=== PATIENT | male | born 1960 | race Caucasian/White ===

== ENCOUNTER 2025-04-10 05:55 | Inpatient (IN) | payer MEDICARE, SELFPAY ==
[2025-04-10] VITALS (8 sets, daily range): BP systolic 101–154; BP diastolic 58–94; PULSE 71–106; TEMP 36.3–36.5; O2SAT 94–99; BMI 26.4; BMI 26.2
--- NOTE | 2025-04-10 06:30 | ED.MALEGU1 ---
Documented by User: Flaco Kam MD 04/10/25 19:19 HPI - Male Genitourinary General Chief complaint: Urogenital-Male Stated complaint: UTI Time Seen by Provider: 04/10/25 06:16 Source: patient Mode of arrival: walk-in Limitations: no limitations History of Present Illness HPI Narrative: patient complains of discomfort with urination and difficulty starting urinary flow for past 2 weeks. Started on Bactrim ds and has taken 3 doses so far but does not feel he is any better and now presents to be seen. No nausea or vomiting. no flank pain Related Data Home Medications ?Medication ?Instructions ?Recorded ?Confirmed lisinopril 5 mg tablet 5 mg PO DAILY 04/10/25 04/10/25 sulfamethoxazole 800 1 tab PO Q12H 04/10/25 04/10/25 mg-trimethoprim 160 mg tablet Allergies Allergy/AdvReac Type Severity Reaction Status Date / Time No Known Drug Allergies Allergy Verified 04/10/25 06:07 Review of Systems ROS Status of ROS 10 or more systems reviewed and unremarkable except as noted in history and below [facility] Medical History (Updated 04/10/25 @ 12:27 by Shaikh Elvira MD) HTN (hypertension) ?I10 - Essential (primary) hypertension (ICD-10) Borderline high blood pressure ?R03.0 - Elevated blood-pressure reading, without diagnosis of hypertension (ICD-10) Social History Smoking status: Never smoker Non-prescribed substance use: denies use Previous occupational history: retired Known occupational exposures/hazards: No Highest level of school completed/degree received: high school graduate Little interest or pleasure in doing things: several days Feeling down, depressed, or hopeless: not at all Exam Constitutional Vital Signs, click to edit/add: Last Vital Signs Temp 97.4 F L 04/10/25 15:49 Pulse 74 04/10/25 15:49 Resp 16 04/10/25 15:49 BP 112/66 04/10/25 15:49 Pulse Ox 96 04/10/25 15:49 O2 Del Method Room Air 04/10/25 14:30 Common normals: no apparent distress, average body habitus, oriented x3, no limitations, healthy appearing, alert and well nourished [facility] Common normals: normocephalic and head/scalp atraumatic Eye Common normals: EOMs intact bilaterally and conjunctivae normal Respiratory Common normals: normal respiratory effort, no retractions, no use of accessory muscles and clear to auscultation bilaterally Cardio Common normals: regular rate, regular rhythm, S1 normal heart sound and S2 normal heart sound GI Common normals: Normal to inspection, nondistended, normoactive bowel sounds present, soft to palpation and non-tender Extremity Common normals: normal to inspection and full ROM Neuro Common normals: oriented x3, CN's II-XII intact bilaterally and moves all extremities Psych Appearance: grossly normal Course Vital Signs Vital signs: Vital Signs Temperature 97.7 F 04/10/25 06:01 Pulse Rate 106 H 04/10/25 06:01 Respiratory Rate 18 04/10/25 06:01 Blood Pressure 154/94 H 04/10/25 06:01 Pulse Oximetry 96 04/10/25 06:01 Oxygen Delivery Method Room Air 04/10/25 06:01 Temperature 97.4 F L 04/10/25 15:49 Pulse Rate 74 04/10/25 15:49 Respiratory Rate 16 04/10/25 15:49 Blood Pressure 112/66 04/10/25 15:49 Pulse Oximetry 96 04/10/25 15:49 Oxygen Delivery Method Room Air 04/10/25 14:30 MDM - Male Genitourinary MDM Narrative Medical decision making narrative: patient presents with complaint of dysuria that has not improved after 3 doses of bactrim. States sometimes he is not able to urinate. Bladder scan with 1400cc of urine. Colvin placed by nursing and UA sent care transferred to oncoming physician at change of shift Lab Data Labs: Lab Results 04/10/25 04/10/25 Range/Units 06:17 07:23 WBC 7.5 (4.0-11.0) 10^3/uL RBC 4.58 L (4.70-6.10) 10^6/uL Hgb 13.0 L (14.0-18.0) g/dL Hct 37.2 L (42.0-54.0) % MCV 81.2 (80.0-94.0) fL MCH 28.4 (25.9-34.0) pg MCHC 34.9 (29.9-35.2) g/dL RDW 12.1 (11.0-15.0) % Plt Count 253 (150-450) 10^3/uL MPV 9.9 (9.5-13.5) fL Neut % (Auto) 70.4 (43.0-75.0) % Lymph % (Auto) 14.7 L (20.5-60.0) % [place] % (Auto) 13.8 H (1.7-12.0) % Eos % (Auto) 0.4 L (0.9-7.0) % Baso % (Auto) 0.4 (0.2-2.0) % Neut # (Auto) 5.3 (1.4-6.5) 10^3/uL Lymph # (Auto) 1.1 L (1.2-3.8) 10^3/uL [place] # (Auto) 1.0 H (0.3-0.8) 10^3/uL Eos # (Auto) 0.0 (0.0-0.7) 10^3/uL Baso # (Auto) 0.0 (0.0-0.1) 10^3/uL Abs Immat Gran (auto) 0.02 (0.00-0.03) 10^3/uL Imm/Tot Granulo (auto) 0.3 (0.0-0.5) % PT 13.5 H (9.0-11.6) sec INR 1.31 Sodium 133 L (136-145) mmol/L Potassium 4.2 (3.5-5.1) mmol/L Chloride 98 (98-107) mmol/L Carbon Dioxide 17.5 L (21.0-32.0) mmol/L Anion Gap 21.7 BUN 59.0 H (7.0-18.0) mg/dL Creatinine 3.67 H (0.70-1.30) mg/dL Est GFR ( Amer) 20 L (>=60 mL/min/1.73m^2) Est GFR (Non-Af Amer) 17 L (>=60 mL/min/1.73m^2) BUN/Creatinine Ratio 16.1 Glucose 109 H (74-106) mg/dL Lactate 1.3 (0.4-2.0) mmol/L Calcium 9.5 (8.5-10.1) mg/dL Total Bilirubin 0.6 (0.2-1.0) mg/dL AST 16 (15-37) U/L ALT 18 (16-63) U/L Alkaline Phosphatase 87 (46-116) U/L Total Protein 7.6 (6.4-8.2) g/dL Albumin 3.3 L (3.4-5.0) g/dL Globulin 4.3 g/dL Albumin/Globulin Ratio 0.8 Urine Color Lt. yellow (YELLOW) Urine Clarity Cloudy A (CLEAR) Urine pH 6.5 (5.0-9.0) Ur Specific [place] 1.015 (1.005-1.025) Urine Protein >=300 A (NEG/TRACE) mg/dL Urine Glucose (UA) Negative (NEGATIVE) mg/dL Urine Ketones Negative (NEGATIVE) mg/dL Urine Occult Blood Large A (NEGATIVE) Urine Nitrite Negative (NEGATIVE) Urine Bilirubin Negative (NEGATIVE) Urine Urobilinogen 0.2 (0.2-1.0) EU/dL Ur Leukocyte Esterase Large A (NEGATIVE) Urine RBC 50-75 A (0-2) #/HPF Urine WBC 75-100 A (NONE SEEN) #/HPF Ur Squamous Epith Cells Rare (NONE/RARE) #/LPF Urine Crystals None seen (None Seen) #/HPF Urine Bacteria Small A (NONE SEEN) #/HPF Urine Casts None seen (NONE SEEN) #/LPF Urine Mucus None seen (NONE SEEN) Ur [place] [place] Discharge Chief Complaint: Urogenital-Male Clinical Impression: Acute urinary retention, Acute renal failure, Acute UTI Patient Disposition: Admitted as Observation Time of Disposition Decision: 09:31 Discharge Date/Time: 04/10/25 11:35 Documented by User: Wendy Lindsey MD 04/10/25 10:21 HPI - Male Genitourinary General Chief complaint: Urogenital-Male Stated complaint: UTI Time Seen by Provider: 04/10/25 06:16 Related Data Home Medications ?Medication ?Instructions ?Recorded ?Confirmed lisinopril 5 mg tablet 5 mg PO DAILY 04/10/25 04/10/25 sulfamethoxazole 800 1 tab PO Q12H 04/10/25 04/10/25 mg-trimethoprim 160 mg tablet Allergies Allergy/AdvReac Type Severity Reaction Status Date / Time No Known Drug Allergies Allergy Verified 04/10/25 06:07 [facility] Medical History (Updated 04/10/25 @ 12:27 by Shaikh Elvira MD) HTN (hypertension) ?I10 - Essential (primary) hypertension (ICD-10) Borderline high blood pressure ?R03.0 - Elevated blood-pressure reading, without diagnosis of hypertension (ICD-10) Social History Smoking status: Never smoker Non-prescribed substance use: denies use Previous occupational history: retired Known occupational exposures/hazards: No Highest level of school completed/degree received: high school graduate Little interest or pleasure in doing things: several days Feeling down, depressed, or hopeless: not at all Exam Constitutional Vital Signs, click to edit/add: Last Vital Signs Temp 97.4 F L 04/10/25 15:49 Pulse 74 04/10/25 15:49 Resp 16 04/10/25 15:49 BP 112/66 04/10/25 15:49 Pulse Ox 96 04/10/25 15:49 O2 Del Method Room Air 04/10/25 14:30 Course Vital Signs Vital signs: Vital Signs Temperature 97.7 F 04/10/25 06:01 Pulse Rate 106 H 04/10/25 06:01 Respiratory Rate 18 04/10/25 06:01 Blood Pressure 154/94 H 04/10/25 06:01 Pulse Oximetry 96 04/10/25 06:01 Oxygen Delivery Method Room Air 04/10/25 06:01 Temperature 97.4 F L 04/10/25 15:49 Pulse Rate 74 04/10/25 15:49 Respiratory Rate 16 04/10/25 15:49 Blood Pressure 112/66 04/10/25 15:49 Pulse Oximetry 96 04/10/25 15:49 Oxygen Delivery Method Room Air 04/10/25 14:30 MDM - Male Genitourinary MDM Narrative Medical decision making narrative: patient presents with complaint of dysuria that has not improved after 3 doses of bactrim. States sometimes he is not able to urinate. Bladder scan with 1400cc of urine. Colvin placed by nursing and UA sent care transferred to oncoming physician at change of shift The patient care transferred to in at 7 AM: And the patient urinalysis shows UTI and the chemistry showing acute kidney injury with a creatinine 3.6 CBC shows no leukocytosis It seems that the patient mostly have acute kidney injury secondary to urinary retention and we did have a CAT scan without contrast that showed that the patient have significant hydronephrosis with a left-sided kidney atrophy the patient also have a thickened bladder The patient pain did not get better after he had the Colvin catheter placed he had the significant hematuria after draining almost 1400 cc of urine The patient case was discussed with from the urology service and right now the patient will be admitted for hydration and URBANO management he was started on imipenem for urine infection treatment Patient case discussed with and he agreed on above-mentioned plan Lab Data Labs: Lab Results 04/10/25 04/10/25 Range/Units 06:17 07:23 WBC 7.5 (4.0-11.0) 10^3/uL RBC 4.58 L (4.70-6.10) 10^6/uL Hgb 13.0 L (14.0-18.0) g/dL Hct 37.2 L (42.0-54.0) % MCV 81.2 (80.0-94.0) fL MCH 28.4 (25.9-34.0) pg MCHC 34.9 (29.9-35.2) g/dL RDW 12.1 (11.0-15.0) % Plt Count 253 (150-450) 10^3/uL MPV 9.9 (9.5-13.5) fL Neut % (Auto) 70.4 (43.0-75.0) % Lymph % (Auto) 14.7 L (20.5-60.0) % [place] % (Auto) 13.8 H (1.7-12.0) % Eos % (Auto) 0.4 L (0.9-7.0) % Baso % (Auto) 0.4 (0.2-2.0) % Neut # (Auto) 5.3 (1.4-6.5) 10^3/uL Lymph # (Auto) 1.1 L (1.2-3.8) 10^3/uL [place] # (Auto) 1.0 H (0.3-0.8) 10^3/uL Eos # (Auto) 0.0 (0.0-0.7) 10^3/uL Baso # (Auto) 0.0 (0.0-0.1) 10^3/uL Abs Immat Gran (auto) 0.02 (0.00-0.03) 10^3/uL Imm/Tot Granulo (auto) 0.3 (0.0-0.5) % PT 13.5 H (9.0-11.6) sec INR 1.31 Sodium 133 L (136-145) mmol/L Potassium 4.2 (3.5-5.1) mmol/L Chloride 98 (98-107) mmol/L Carbon Dioxide 17.5 L (21.0-32.0) mmol/L Anion Gap 21.7 BUN 59.0 H (7.0-18.0) mg/dL Creatinine 3.67 H (0.70-1.30) mg/dL Est GFR ( Amer) 20 L (>=60 mL/min/1.73m^2) Est GFR (Non-Af Amer) 17 L (>=60 mL/min/1.73m^2) BUN/Creatinine Ratio 16.1 Glucose 109 H (74-106) mg/dL Lactate 1.3 (0.4-2.0) mmol/L Calcium 9.5 (8.5-10.1) mg/dL Total Bilirubin 0.6 (0.2-1.0) mg/dL AST 16 (15-37) U/L ALT 18 (16-63) U/L Alkaline Phosphatase 87 (46-116) U/L Total Protein 7.6 (6.4-8.2) g/dL Albumin 3.3 L (3.4-5.0) g/dL Globulin 4.3 g/dL Albumin/Globulin Ratio 0.8 Urine Color Lt. yellow (YELLOW) Urine Clarity Cloudy A (CLEAR) Urine pH 6.5 (5.0-9.0) Ur Specific [place] 1.015 (1.005-1.025) Urine Protein >=300 A (NEG/TRACE) mg/dL Urine Glucose (UA) Negative (NEGATIVE) mg/dL Urine Ketones Negative (NEGATIVE) mg/dL Urine Occult Blood Large A (NEGATIVE) Urine Nitrite Negative (NEGATIVE) Urine Bilirubin Negative (NEGATIVE) Urine Urobilinogen 0.2 (0.2-1.0) EU/dL Ur Leukocyte Esterase Large A (NEGATIVE) Urine RBC 50-75 A (0-2) #/HPF Urine WBC 75-100 A (NONE SEEN) #/HPF Ur Squamous Epith Cells Rare (NONE/RARE) #/LPF Urine Crystals None seen (None Seen) #/HPF Urine Bacteria Small A (NONE SEEN) #/HPF Urine Casts None seen (NONE SEEN) #/LPF Urine Mucus None seen (NONE SEEN) Ur [place] [place] Discharge Chief Complaint: Urogenital-Male Clinical Impression: Acute urinary retention, Acute renal failure, Acute UTI Patient Disposition: Admitted as Observation Time of Disposition Decision: 09:31 Discharge Date/Time: 04/10/25 11:35
[2025-04-10 06:54] LABS: Bilirubin Urine NEGATIVE (NEGATIVE); Blood Urine LARGE (NEGATIVE); Clarity Urine CLOUDY (CLEAR); Color Urine LT. YELLOW (YELLOW); Glucose Urine UA NEGATIVE (NEGATIVE); Ketones Urine NEGATIVE (NEGATIVE); Leukocyte Esterase Urine LARGE (NEGATIVE); Nitrite Urine NEGATIVE (NEGATIVE); Protein Urine >=300 mg/dL (NEG/TRACE); Specific Gravity Urine 1.015 (1.005-1.025); Urobilinogen Urine 0.2 EU/dL (0.2-1.0); pH Urine 6.5 (5.0-9.0)
[2025-04-10] MEDS: LIDOCAINE 2% JELLY 20 ML UR (07:00)
[2025-04-10 07:10] LABS: RBC Urine 50-75 #/HPF (0-2)
[2025-04-10 07:11] LABS: Bacteria Urine SMALL #/HPF (NONE SEEN); WBC Urine 75-100 #/HPF (NONE SEEN)
[2025-04-10 07:12] LABS: Cast Seen? NONE SEEN #/LPF (NONE SEEN); Crystals Seen? None Seen #/HPF (None Seen); Mucus Urine NONE SEEN (NONE SEEN); Squamous Epithelial Cell Urine RARE #/LPF (NONE/RARE); Urine Culture Indicated YES-FRMC
[2025-04-10] MEDS: KETOROLAC TROMETHAMINE 30 MG/ML VIAL 15 MG IVP (07:17)
[2025-04-10 07:30] LABS: Basophils Percent Auto 0.4 % (0.2-2.0); Eosinophils Percent Auto 0.4 % (0.9-7.0); Hematocrit 37.2 % (42.0-54.0); Immature Granulocytes Abs Auto 0.02 10^3/uL (0.00-0.03); Immature Granulocytes Pct Auto 0.3 % (0.0-0.5); Lymphocytes Absolute Auto 1.1 10^3/uL (1.2-3.8); Lymphocytes Percent Auto 14.7 % (20.5-60.0); Mean Corpuscular HGB Conc 34.9 g/dL (29.9-35.2); Mean Corpuscular Hemoglobin 28.4 pg (25.9-34.0); Mean Corpuscular Volume 81.2 fL (80.0-94.0); Mean Platelet Volume 9.9 fL (9.5-13.5); Monocytes Percent Auto 13.8 % (1.7-12.0); Neutrophils Absolute Auto 5.3 10^3/uL (1.4-6.5); Neutrophils Percent Auto 70.4 % (43.0-75.0); Platelet Count 253 10^3/uL (150-450); Red Blood Count 4.58 10^6/uL (4.70-6.10); Red Cell Distribution Width 12.1 % (11.0-15.0); White Blood Count 7.5 10^3/uL (4.0-11.0)
[2025-04-10 07:44] LABS: INR 1.31; Prothrombin Time 13.5 sec (9.0-11.6)
[2025-04-10] MEDS: MORPHINE SULFATE 4 MG/ML VIAL IV (07:45)
[2025-04-10 07:47] LABS: Alanine Aminotransferase 18 U/L (16-63); Albumin Globulin Ratio 0.8; Albumin Level 3.3 g/dL (3.4-5.0); Alkaline Phosphatase 87 U/L (46-116); Anion Gap 21.7; Aspartate Amino Transferase 16 U/L (15-37); BUN Creatinine Ratio 16.1; Bilirubin Total 0.6 mg/dL (0.2-1.0); Calcium 9.5 mg/dL (8.5-10.1); Carbon Dioxide 17.5 mmol/L (21.0-32.0); Chloride 98 mmol/L (98-107); Estimated GFR (African America 20 (>=60 mL/min/1.73m^2); Estimated GFR (Non-African Ame 17 (>=60 mL/min/1.73m^2); Globulin 4.3 g/dL; Glucose 109 mg/dL (74-106); Potassium 4.2 mmol/L (3.5-5.1); Sodium 133 mmol/L (136-145); Total Protein 7.6 g/dL (6.4-8.2)
[2025-04-10] MEDS: 0.9 % SODIUM CHLORIDE 1,000 ML 1000 ML IV ×2 (08:17→09:47)
[2025-04-10] MEDS: IMIPENEM/CILASTATIN SODIUM 500 MG in 0.9 % SODIUM CHLORIDE 100 ML 200 MG IV (09:47)
[2025-04-10 09:55] LABS: Lactate/Lactic Acid 1.3 mmol/L (0.4-2.0)
--- NOTE | 2025-04-10 12:10 | US_ITS ---
The [address] [address] Patient Name: MICHAEL CAMPBELL MRN: [id number] date: 1960 Sex: M Assigned Patient Location: [place] Current Patient Location: [place] Accession/Order Number: [id number] Exam Date: 04/11/2025 13:29 Report Date: 04/11/2025 13:33 At the request of: SHAIKH KINA ARRIAGA Procedure: US renal BI BILATERAL RENAL AND BLADDER ULTRASOUND CLINICAL HISTORY: Follow-up hydronephrosis on CT COMPARISON: CT 04/10/2025 Estimation of renal size is approximately 11.4 cm on the right and 10.2 cm on the left. No shadowing calculi are identified. There is mild right hydronephrosis. There is moderate to severe hydronephrosis and proximal hydroureter on the left. There may be some thinning of the cortex on that side. A suspected cyst with debris is present at the inferior pole the right kidney measuring 3.3 x 3.3 x 3.1 cm. There is no perinephric fluid. The urinary bladder contains a Hsieh catheter and is not adequately distended for evaluation. The wall does however appear to be thickened. US/US renal BI IMPRESSION: MILDLY COMPLICATED RIGHT RENAL CYST. BILATERAL HYDRONEPHROSIS, GREATER ON THE LEFT. HSIEH CONTAINING URINARY BLADDER WITH SUSPECTED WALL THICKENING. Impression dictated by: Telma Estrada M.D. 04/11/2025 1:33 PM Dictation Location: [place] [address] Electronically authenticated by: [id number] Y Date: 04/11/2025 13:33
--- NOTE | 2025-04-10 12:23 | P.HP_ITS ---
HPI H&P: HPI History of Present Illness Chief complaint: UTI, URBANO, URINE RETENTION Narrative: History of presenting illness and Hospital course: 65-year-old male with past medical history of essential hypertension presented to ED with suprapubic discomfort/pain along with dysuria. He was started on Bactrim 3 days ago for suspected UTI and he has been using it for 3 days. Workup in ED revealed bilateral hydroureteronephrosis/bladder wall thickening on CT abdomen pelvis along with acute kidney injury with serum creatinine of 3.6. Patient denies prior history of acute kidney injury or chronic kidney disease. For past few months he has noticed nocturia, polyuria, weak urinary stream and sense of incomplete bladder emptying. He never had urinary catheterization in the past. He does not follow-up with urology as outpatient. In ER after Colvin insertion about 1400 mL urine came out. Subjectively, patient feels well after catheter insertion. After Colvin insertion, he was noted to have mild hematuria which could be secondary to bladder outlet obstruction/difficult urinary catheterization. Prior to catheterization, he did not notice hematuria. Opioid HPI Opioid Management Most Recent Pain and Opioid Data: Last Pain Scale 10 Today, 07:45 Last MAR Pain Assessment Today, 07:17 Last ORT Total Score 0 Today, 11:44 Last ORT Risk Category Low Risk Today, 11:44 Review of Systems ROS Status of ROS 10 or more systems reviewed and unremark able except as noted in history and below [facility] Medical History (Updated 04/10/25 @ 12:27 by Shaikh Elvira MD) HTN (hypertension) ?I10 - Essential (primary) hypertension (ICD-10) Borderline high blood pressure ?R03.0 - Elevated blood-pressure reading, without diagnosis of hypertension ( ICD-10) Social History Smoking status: Never smoker Non-prescribed substance use: denies use Previous occupational history: retired Known occupational exposures/hazards: No Highest level of school completed/degree received: high school graduate Little interest or pleasure in doing things: several days Feeling down, depressed, or hopeless: not at all Meds Home Medications and Allergies Home Medications ?Medication ?Instructions ?Recorded ?Confirmed ?Type lisinopril 5 mg tablet 5 mg PO DAILY 04/10/2504/10 History sulfamethoxazole 800 1 tab PO Q12H 04/10/2504/10 History mg-trimethoprim 160 mg tablet Allergies Allergy/AdvReac Type Severity Reaction Status Date / Time No Known Drug Allergies Allergy Verified 04/10/25 06:07 Exam Constitutional Vital Signs, click to edit/add: Last Vital Signs Temp 97.4 F L 04/10/25 11:44 Pulse 73 04/10/25 11:44 Resp 16 04/10/25 11:44 BP 103/60 04/10/25 11:44 Pulse Ox 96 04/10/25 11:44 O2 Del Method Room Air 04/10/25 11:44 Documenting provider has reviewed patient's vital signs: yes Common normals: no apparent distress and oriented x3 General appearance: cooperative HENMT Common normals: normocephalic and head/scalp atraumatic Head and scalp: normocephalic and atraumatic Eye Common normals: conjunctivae normal and no scleral icterus Conjunctiva: conjunctiva(e) normal Respiratory Common normals: normal respiratory effort and clear to auscultation bilaterally Effort & inspection: able to speak in complete sentences Auscultation: clear to auscultation bilaterally Cardio Common normals: regular rate, S1 normal heart sound and S2 normal heart sound Rate: regular rate Heart sounds: S1 normal and S2 normal GI Common normals: Normal to inspection, nondistended, normoactive bowel sounds present, soft to palpation, non-tender and no hepatosplenomegaly Palpation: soft and no hepatosplenomegaly Extremity Common normals: no clubbing, cyanosis or edema Neuro Common normals: oriented x3, moves all extremities and no focal motor deficits Psych Common normals: mental status grossly normal, denies hallucinations, denies homicidal ideation and denies suicidal ideation Results Labs Labs: Short CBC 04/10/25 Range/Units 07:23 WBC 7.5 (4.0-11.0) 10^3/uL Hgb 13.0 L (14.0-18.0) g/dL Hct 37.2 L (42.0-54.0) % Plt Count 253 (150-450) 10^3/uL BMP 04/10/25 07:23 Sodium 133 L Potassium 4.2 Chloride 98 Carbon Dioxide 17.5 L BUN 59.0 H Creatinine 3.67 H Glucose 109 H Calcium 9.5 Liver Function 04/10/25 Range/Units 07:23 Total Bilirubin 0.6 (0.2-1.0) mg/dL AST 16 (15-37) U/L ALT 18 (16-63) U/L Alkaline Phosphatase 87 (46-116) U/L Albumin 3.3 L (3.4-5.0) g/dL Urine 04/10/25 Range/Units 06:17 Urine Color Lt. yellow (YELLOW) Urine Clarity Cloudy A (CLEAR) Urine pH 6.5 (5.0-9.0) Ur Specific [place] 1.015 (1.005-1.025) Urine Protein >=300 A (NEG/TRACE) mg/dL Urine Glucose (UA) Negative (NEGATIVE) mg/dL Assessment and Plan Assessment and Plan (1) URBANO (acute kidney injury): Assessment and Plan: Normal kidney function at baseline. Patient presented with creatinine of 3.6. Likely secondary to bladder outlet obstruction/obstructive uropathy. Has urin seth catheter in place now. Continue with gentle IV hydration. Monitor renal function closely. (2) Acute UTI: Assessment and Plan: Urinary tract infection secondary to BPH/bladder outlet obstruction, associated with hematuria. Started Rocephin. Follow-up urine culture (3) Urinary retention due to benign prostatic hyperplasia: Assessment and Plan: With urinary retention likely secondary to BPH. Catheter in place. No evidence of kidney stones. CT abdomen pelvis shows bilateral hydro ureteral nephrosis/urinary bladder wall thickening. (4) Hydronephrosis due to obstruction of bladder: Assessment and Plan: Bilateral hydroureteronephrosis likely secondary to bladder outlet obstruction from BPH. Colvin catheter in place. Will repeat renal ultrasound to ensure improvement in hydronephrosis. (5) HTN (hypertension): Assessment and Plan: Hold lisinopril because of acute kidney injury. If needed, will start on amlo dipine. Monitor blood pressure without antihypertensives for now. Qualifiers: Hypertension type: primary hypertension Qualified Code(s): I10 - Essential (primary) hypertension Plan Continue with gentle IV hydration. Monitor serum creatinine, urine output closely. Continue with IV antibiotics. Repeat ultrasound on Friday. Started on Flomax for bladder outlet obstruction secondary to BPH. Follow-up urine cultures. Urinary Catheter Management Urinary Catheter Management 2-way Urethral: Cath placed during this visit: yes Urethral indwelling: Yes Reason for continuing: urinary obstruction Insertion date: 04/10/25 Insertion time: 06:50
[2025-04-10] MEDS: HEPARIN SODIUM (PORCINE) 5,000 UNIT/ML VIAL 5000 UNIT SUBQ ×2 (13:25→21:16)
[2025-04-10] MEDS: TAMSULOSIN HCL 0.4 MG CAPSULE PO (13:25)
[2025-04-10] MEDS: LACTATED RINGER'S SOLUTION 1,000 ML 125 ML IV ×2 (15:53→23:06)
[2025-04-10] MEDS: CEFTRIAXONE 1,000 MG in 0.9 % SODIUM CHLORIDE 50 ML 100 MG IV (17:02)
[2025-04-10 20:19] LABS: Anion Gap 12.6; BUN Creatinine Ratio 17.1; Carbon Dioxide 20.2 mmol/L (21.0-32.0); Chloride 107 mmol/L (98-107); Estimated GFR (African America 28 (>=60 mL/min/1.73m^2); Estimated GFR (Non-African Ame 23 (>=60 mL/min/1.73m^2); Glucose 114 mg/dL (74-106); Potassium 3.8 mmol/L (3.5-5.1); Sodium 136 mmol/L (136-145)
[2025-04-11] VITALS (7 sets, daily range): BP systolic 100–122; BP diastolic 62–75; PULSE 65–114; TEMP 36.4–36.9; O2SAT 92–99
--- NOTE | 2025-04-11 05:07 | PC.NURSE ---
Subcutaneous heparin held at this time d/t patient having a lot of blood in urne.
[2025-04-11 05:37] LABS: Basophils Percent Auto 0.8 % (0.2-2.0); Eosinophils Absolute Auto 0.2 10^3/uL (0.0-0.7); Eosinophils Percent Auto 4.6 % (0.9-7.0); Hematocrit 31.5 % (42.0-54.0); Hemoglobin 10.8 g/dL (14.0-18.0); Immature Granulocytes Abs Auto 0.01 10^3/uL (0.00-0.03); Immature Granulocytes Pct Auto 0.3 % (0.0-0.5); Mean Corpuscular HGB Conc 34.3 g/dL (29.9-35.2); Mean Corpuscular Hemoglobin 28.6 pg (25.9-34.0); Mean Corpuscular Volume 83.3 fL (80.0-94.0); Mean Platelet Volume 9.9 fL (9.5-13.5); Monocytes Absolute Auto 0.4 10^3/uL (0.3-0.8); Neutrophils Absolute Auto 2.3 10^3/uL (1.4-6.5); Neutrophils Percent Auto 57.3 % (43.0-75.0); Platelet Count 149 10^3/uL (150-450); Red Blood Count 3.78 10^6/uL (4.70-6.10); Red Cell Distribution Width 12.2 % (11.0-15.0); White Blood Count 3.9 10^3/uL (4.0-11.0)
[2025-04-11 05:56] LABS: Anion Gap 16.3; Chloride 109 mmol/L (98-107); Glucose 95 mg/dL (74-106); Potassium 4.3 mmol/L (3.5-5.1); Sodium 140 mmol/L (136-145)
[2025-04-11 05:57] LABS: Alanine Aminotransferase 17 U/L (16-63); Albumin Globulin Ratio 0.7; Albumin Level 2.4 g/dL (3.4-5.0); Alkaline Phosphatase 64 U/L (46-116); Aspartate Amino Transferase 15 U/L (15-37); BUN Creatinine Ratio 18.8; Bilirubin Total 0.3 mg/dL (0.2-1.0); Calcium 8.2 mg/dL (8.5-10.1); Estimated GFR (African America 37 (>=60 mL/min/1.73m^2); Estimated GFR (Non-African Ame 31 (>=60 mL/min/1.73m^2); Globulin 3.4 g/dL; Total Protein 5.8 g/dL (6.4-8.2)
--- NOTE | 2025-04-11 06:02 | P.PN_ITS ---
Progress Note: Subjective Subjective Interval history: No specific complaints this morning, abdominal pain that he presented to ER with is better Exam Constitutional Vital Signs, click to edit/add: Last Vital Signs Temp 98.4 F 04/11/25 05:48 Pulse 65 04/11/25 05:48 Resp 18 04/11/25 05:48 BP 112/67 04/11/25 05:48 Pulse Ox 96 04/11/25 05:48 O2 Del Method Room Air 04/11/25 05:48 Documenting provider has reviewed patient's vital signs: yes Common normals: no apparent distress Chest Common normals: inspection of chest normal Respiratory Common normals: normal respiratory effort and no retractions Cardio Common normals: regular rate, regular rhythm and no murmurs GI Common normals: Normal to inspection, nondistended, normoactive bowel sounds present, soft to palpation and non-tender Extremity Common normals: normal to inspection, full ROM and normal capillary refill Neuro Common normals: oriented x3 and CN's II-XII intact bilaterally Progress Note: Objective Labs Labs: Short CBC 04/10/25 04/11/25 Range/Units 07:23 05:11 WBC 7.5 3.9 L (4.0-11.0) 10^3/uL Hgb 13.0 L 10.8 L (14.0-18.0) g/dL Hct 37.2 L 31.5 L (42.0-54.0) % Plt Count 253 149 L (150-450) 10^3/uL BMP 04/10/25 04/10/25 04/11/25 07:23 20:03 05:11 Sodium 133 L 136 140 Potassium 4.2 3.8 4.3 Chloride 98 107 109 H Carbon Dioxide 17.5 L 20.2 L 19.0 L BUN 59.0 H 48.0 H 41.0 H Creatinine 3.67 H 2.81 H 2.18 H Glucose 109 H 114 H 95 Calcium 9.5 8.0 L 8.2 L Liver Function 04/10/25 04/11/25 Range/Units 07:23 05:11 Total Bilirubin 0.6 0.3 (0.2-1.0) mg/dL AST 16 15 (15-37) U/L ALT 18 17 (16-63) U/L Alkaline Phosphatase 87 64 (46-116) U/L Albumin 3.3 L 2.4 L (3.4-5.0) g/dL Urine 18/ Range/Units 06:17 Urine Color Lt. yellow (YELLOW) Urine Clarity Cloudy A (CLEAR) Urine pH 6.5 (5.0-9.0) Ur Specific [place] 1.015 (1.005-1.025) Urine Protein >=300 A (NEG/TRACE) mg/dL Urine Glucose (UA) Negative (NEGATIVE) mg/dL Progress Note: A&P Assessment and Plan (1) URBANO (acute kidney injury): (2) Acute UTI: (3) Urinary retention due to benign prostatic hyperplasia: (4) Hydronephrosis due to obstruction of bladder: (5) HTN (hypertension): Qualifiers: Hypertension type: primary hypertension Qualified Code(s): I10 - Essential (primary) hypertension Plan Admission findings: Sinus tachycardia, acute renal failure (baseline creatinine of 1, no history of kidney injury in the past, creatinine on admission of 3.67 which reported 367% above baseline secondary to bladder outlet obstruction resulting in significant hydronephrosis Acute renal failure-as outlined above-continue with IV hydration, creatinine still greater than 200% above baseline Acute UTI: On antibiotics, also with significant hematuria, culture pending, stop heparin Urinary retention due to benign prostatic hyperplasia: Repeat ultrasound kidneys pending Hydronephrosis due to obstruction of bladder: Repeat ultrasound pending HTN (hypertension): Holding lisinopril for now secondary to the creatinine Iron deficiency anemia-down somewhat today, continue to monitor Thrombocytopenia today-possibly buhjxcm-thdeown-guocisng heparin Hyponatremia on admission improved to normal normal Coagulopathy-somewhat better today, but elevated on admission uncertain etiology Neutropenia-borderline today-continue to monitor Admission status: Patient with acute renal failure and slow to improve secondary to bladder outlet obstruction resulting in hydronephrosis and now with sig nificant hematuria secondary to the bladder distention, medically necessary treatment will span 2 midnights. Inpatient status Urinary Catheter Management Urinary Catheter Management 2-way Urethral: Cath placed during this visit: yes Urethral indwelling: Yes Reason for continuing: acute urinary retention Insertion date: 04/10/25 Insertion time: 06:50
[2025-04-11] MEDS: LEVOFLOXACIN IN DEXTROSE 5 % 750 MG/150 ML PREMIX 100 MG IV (06:20)
[2025-04-11] MEDS: LACTATED RINGER'S SOLUTION 1,000 ML 125 ML IV ×2 (06:20→16:15)
[2025-04-11 06:52] LABS: INR 1.29; Prothrombin Time 13.3 sec (9.0-11.6)
--- NOTE | 2025-04-11 08:19 | CM.NOTE ---
Rounds made with Dr. Venegas. Dr. Venegas reviews labs and findings with Mr. Hernandez. Encouraged Mr. Hernandez to ambulate. No discharge today.
[2025-04-11] MEDS: POLYETHYLENE GLYCOL 3350 17 GM POWDER PACKET PO (09:22)
[2025-04-11] MEDS: TAMSULOSIN HCL 0.4 MG CAPSULE PO (09:23)
[2025-04-11] MEDS: ACETAMINOPHEN 500 MG TABLET 1000 MG PO (09:23)
[2025-04-11] MEDS: HYOSCYAMINE SULFATE 0.125 MG TAB.SUBL SL (09:23)
[2025-04-11] MEDS: CEFTRIAXONE 1,000 MG in 0.9 % SODIUM CHLORIDE 50 ML 100 MG IV (09:41)
[2025-04-11] MEDS: PNEUMOC 20-VAL CONJ-DIP CRM/PF 0.5 ML SYRINGE IM (09:42)
--- NOTE | 2025-04-11 09:49 | SWNOTE1 ---
HARI met with pt and in room to discuss dc needs. Pt lives at home with . Pt does not use any DME at home, still drives, goes up and down stairs. Pt is independent with no services coming in to the home. No anticipated discharge needs at this time.
--- NOTE | 2025-04-11 09:53 | SWNOTE1 ---
Important Message from Medicare reviewed and discussed with patient. Pt. verbalized understanding and signed the form. Original given to patient and copy placed in patient?s chart.
[2025-04-12] MEDS: LACTATED RINGER'S SOLUTION 1,000 ML 125 ML IV (00:10)
[2025-04-12 05:08] VITALS: BP 125/78; PULSE 74; TEMP 36.6; O2SAT 97
[2025-04-12 05:34] LABS: Basophils Percent Auto 0.7 % (0.2-2.0); Eosinophils Absolute Auto 0.2 10^3/uL (0.0-0.7); Eosinophils Percent Auto 4.7 % (0.9-7.0); Hematocrit 28.8 % (42.0-54.0); Hemoglobin 9.8 g/dL (14.0-18.0); Immature Granulocytes Abs Auto 0.01 10^3/uL (0.00-0.03); Immature Granulocytes Pct Auto 0.2 % (0.0-0.5); Lymphocytes Percent Auto 22.2 % (20.5-60.0); Mean Corpuscular Hemoglobin 28.4 pg (25.9-34.0); Mean Corpuscular Volume 83.5 fL (80.0-94.0); Mean Platelet Volume 9.8 fL (9.5-13.5); Monocytes Absolute Auto 0.3 10^3/uL (0.3-0.8); Monocytes Percent Auto 7.7 % (1.7-12.0); Neutrophils Absolute Auto 2.8 10^3/uL (1.4-6.5); Neutrophils Percent Auto 64.5 % (43.0-75.0); Platelet Count 146 10^3/uL (150-450); Red Blood Count 3.45 10^6/uL (4.70-6.10); Red Cell Distribution Width 12.1 % (11.0-15.0); White Blood Count 4.3 10^3/uL (4.0-11.0)
[2025-04-12 05:57] LABS: Alanine Aminotransferase 15 U/L (16-63); Albumin Globulin Ratio 0.7; Albumin Level 2.3 g/dL (3.4-5.0); Alkaline Phosphatase 58 U/L (46-116); Anion Gap 13.7; Aspartate Amino Transferase 16 U/L (15-37); BUN Creatinine Ratio 18.4; Bilirubin Total 0.3 mg/dL (0.2-1.0); Calcium 8.6 mg/dL (8.5-10.1); Carbon Dioxide 22.6 mmol/L (21.0-32.0); Chloride 111 mmol/L (98-107); Estimated GFR (African America 56 (>=60 mL/min/1.73m^2); Estimated GFR (Non-African Ame 46 (>=60 mL/min/1.73m^2); Globulin 3.4 g/dL; Glucose 100 mg/dL (74-106); Potassium 4.3 mmol/L (3.5-5.1); Sodium 143 mmol/L (136-145); Total Protein 5.7 g/dL (6.4-8.2)
--- NOTE | 2025-04-12 06:42 | P.DS_ITS ---
DS: Providers Provider Date of admission: 04/10/25 11:35 Primary care physician: CHETNA HANNAH DS: Diagnosis Discharge Diagnosis (1) URBANO (acute kidney injury): (2) Acute UTI: (3) Urinary retention due to benign prostatic hyperplasia: (4) Hydronephrosis due to obstruction of bladder: (5) HTN (hypertension): Qualifiers: Hypertension type: primary hypertension Qualified Code(s): I10 - Essential (primary) hypertension Plan Admission findings: Sinus tachycardia, acute renal failure (baseline creatinine of 1, no history of kidney injury in the past, creatinine on admission of 3.67 which reported 367% above baseline secondary to bladder outlet obstruction resulting in significant hydronephrosis Acute renal failure-improving at the time of discharge Acute UTI: Culture pending Urinary retention due to benign prostatic hyperplasia: Discharging with Colvin in place Hydronephrosis due to obstruction of bladder: Ultrasound shows improvement HTN (hypertension): Hold off for now Iron deficiency anemia-monitor as an outpatient Thrombocytopenia today-Down slightly at discharge Hyponatremia on admission improved to normal normal Coagulopathy-somewhat better today, but elevated on admission uncertain etiology Neutropenia-borderline today-continue to monitor Admission status: Patient with acute renal failure and slow to improve secondary to bladder outlet obstruction resulting in hydronephrosis and now with significant hematuria secondary to the bladder distention, medically necessary treatment will span 2 midnights. Inpatient status DS: Summary Hospital Course Hospital Course: Patient presented with lower abdominal pain, difficulty urinating, found of significant bladder outlet obstruction with moderate to severe hydronephrosis on CT scan ultrasound shows improvement in the right hydronephrosis left is stable, hematuria initially as well. This is likely from the bladder being overstressed, hematuria is resolved his kidney function is still elevated at 150% above baseline but overall improved, at this point we will discharge patient to home in improving condition. Medications see list. Follow-up with PCP and urology as an outpatient Time Spent with Patient Time attestation: Total time spent providing and/or coordinating discharge services: Exam Constitutional Vital Signs, click to edit/add: Last Vital Signs Temp 97.8 F 04/12/25 05:08 Pulse 74 04/12/25 05:08 Resp 20 04/12/25 05:08 BP 125/78 04/12/25 05:08 Pulse Ox 97 04/12/25 05:08 O2 Del Method Room Air 04/12/25 05:08 Documenting provider has reviewed patient's vital signs: yes Common normals: no apparent distress Chest Common normals: inspection of chest normal Respiratory Common normals: normal respiratory effort, no retractions and clear to auscultation bilaterally Cardio Common normals: regular rate, regular rhythm, S1 normal heart sound, S2 normal heart sound and no murmurs GI Common normals: Normal to inspection, nondistended, normoactive bowel sounds present, soft to palpation and non-tender Extremity Common normals: normal to inspection, full ROM and normal capillary refill Neuro Common normals: oriented x3 and CN's II-XII intact bilaterally DS: Data Data Completed and Pending Labs on day of discharge: Labs from last 24 hours 04/12/25 04/11/25 05:01 06:31 WBC 4.3 RBC 3.45 L Hgb 9.8 L Hct 28.8 L MCV 83.5 MCH 28.4 MCHC 34.0 RDW 12.1 Plt Count 146 L MPV 9.8 Neut % (Auto) 64.5 Lymph % (Auto) 22.2 [place] % (Auto) 7.7 Eos % (Auto) 4.7 Baso % (Auto) 0.7 Neut # (Auto) 2.8 Lymph # (Auto) 1.0 L [place] # (Auto) 0.3 Eos # (Auto) 0.2 Baso # (Auto) 0.0 Abs Immat Gran (auto) 0.01 Imm/Tot Granulo (auto) 0.2 PT 13.3 H INR 1.29 Sodium 143 Potassium 4.3 Chloride 111 H Carbon Dioxide 22.6 Anion Gap 13.7 BUN 28.0 H Creatinine 1.52 H Est GFR ( Amer) 56 L Est GFR (Non-Af Amer) 46 L BUN/Creatinine Ratio 18.4 Glucose 100 Calcium 8.6 Total Bilirubin 0.3 AST 16 ALT 15 L Alkaline Phosphatase 58 Total Protein 5.7 L Albumin 2.3 L Globulin 3.4 Albumin/Globulin Ratio 0.7 Preliminary micro results at discharge 04/10/25 06:17 Urine Culture - Preliminary Urine,Clean Catch Pending - Specimen sent to [facility] Discharge Plan Discharge Disposition: Home, Self-Care Discharge Medications: New tamsulosin 0.4 mg Capsule 0.4 mg PO QD Qty: 30 11RF cefdinir 300 mg capsule 600 mg PO DAILY Qty: 20 0RF Continued lisinopril 5 mg tablet 5 mg PO DAILY sulfamethoxazole-trimethoprim 800-160 mg tablet 1 tab PO Q12H Rx Instructions: Started 1st dose Friday Print Language: Irish Forms: Portal Instructions
--- NOTE | 2025-04-12 08:11 | CM.NOTE ---
Rounds made with Dr. Venegas. Dr. Venegas discusses plan of care and discharge to home. Discharge to home with miller and follow up with Urology and Family physician in ~1 week. Mr. Hernandez in agreement.
[2025-04-12] MEDS: TAMSULOSIN HCL 0.4 MG CAPSULE PO (09:47)
[2025-04-12] MEDS: POLYETHYLENE GLYCOL 3350 17 GM POWDER PACKET PO (09:47)
[2025-04-12] MEDS: CEFTRIAXONE 1,000 MG in 0.9 % SODIUM CHLORIDE 50 ML 100 MG IV (09:48)
[2025-04-12 10:50] VITALS: O2SAT 97
--- NOTE | 2025-04-12 12:53 | NUTR.NU ---
Pt was admitted to [facility] 04/10/25 w/dx UTI, URBANO, AKF, hydronephrosis; all resolved/resolving. PO intakes of regular diet are consistently 100%. Pt voices no dietary c/o or concerns. Will follow PRN.
--- NOTE | 2025-04-13 11:14 | CM.DCFOLLOWU ---
Person spoke with:patient How are you feeling?well How is your pain?none Did you understand your discharge instructions?yes Do you have any questions about your discharge instructions?no Were you given any prescriptions at discharge?yes Were you able to get your prescriptions filled?yes Do you understand how to take your medications as ordered?yes Do you have any questions about your follow up appointment and do you plan to keep your follow up appointment?no questions, plans to keep follow ups Is there anything else that you would like to discuss?no Questions/Comments/Concerns/Other:none
== END 2025-04-12 11:44 | disposition home or self-care (01) | DRG 683 ==
LOC: ER 09:32 → MS 04-11 05:36
PROVIDERS: Emergency Medicine; Admitting Provider Family Medicine; Emergency Provider Internal Medicine; PCP Internal Medicine; Visit Provider Internal Medicine
DX: N17.9 Acute kidney failure, unspecified (principal); D68.9 Coagulation defect, unspecified; N13.8 Other obstructive and reflux uropathy; N39.0 Urinary tract infection, site not specified; E87.1 Hypo-osmolality and hyponatremia; I10 Essential (primary) hypertension; N13.39 Other hydronephrosis; N40.1 Benign prostatic hyperplasia with lower urinary tract symptoms; R39.12 Poor urinary stream; R33.9 Retention of urine, unspecified; R35.0 Frequency of micturition; R35.1 Nocturia; D50.9 Iron deficiency anemia, unspecified; D69.6 Thrombocytopenia, unspecified; Z79.899 Other long term (current) drug therapy
CPT/HCPCS: 36415; 51702; 74176; 76775; 80048; 80053; 81001; 83605; 85025; 85610; 87040; 87086; 90677; 94761; 96365; 96375; 99285; J0696; J0743; J1644; J1885; J2270

== ENCOUNTER 2025-04-23 07:43 | Outpatient (OUT) | payer MEDICARE, SELFPAY ==
--- NOTE | 2025-04-23 07:46 | US_ITS ---
The [address] [address] Patient Name: MICHAEL CAMPBELL MRN: [id number] date: 1960 Sex: M Assigned Patient Location: US Current Patient Location: US Accession/Order Number: [id number] Exam Date: 04/23/2025 11:29 Report Date: 04/23/2025 11:36 At the request of: YFN BRENNER Procedure: US renal BI Bilateral Renal Ultrasound HISTORY: Hydronephrosis COMPARISON: 04/11/2025 RIGHT kidney measures 11.2 cm. No cortical thinning. LEFT kidney measures 9.0 cm. Cortical thinning. Hydronephrosis: Similar Slight right hydronephrosis. Improved moderate left hydronephrosis. RENAL STONE: No shadowing renal calculus is seen. RENAL LESIONS: Similar mildly complex right renal cyst measuring up to 2.4 cm. Prior measurement 3.3 cm. URINARY BLADDER: Nondistended with Colvin catheter present. REPRODUCTIVE STRUCTURES Not assessed IMPRESSION : Similar slight right and improved moderate left hydronephrosis. Redemonstration of mildly complicated right renal cyst, smaller from prior examination. Impression dictated by: Leo Nash M.D. 04/23/2025 11:36 AM Dictation Location: [place] [address] Electronically authenticated by: [id number] Y Date: 04/23/2025 11:36
== END 2025-04-23 07:44 | disposition home or self-care (01) ==
LOC: US 07:43
PROVIDERS: PCP Internal Medicine; Visit Provider Student in an Organized Health Care Education/Training Program
DX: N13.30 Unspecified hydronephrosis (principal); N28.1 Cyst of kidney, acquired
CPT/HCPCS: 76775

== ENCOUNTER 2025-05-07 10:48 | Observation (INO) | payer MEDICARE, SELFPAY ==
--- OUTSIDE RECORDS SUMMARY | 2025-05-04 08:00 | XMS_ITS | Encounter Summary ---
Author Organization [facility] Address [address] [place] [address] Care Team Providers Care Certified Ethical Hacker Name Role Phone Virginia Vieira APRN, CNP Primary Care Provider Reason for Referral * Imaging (Routine) - Not Required - RTA Specialty Diagnoses / Procedures Referred By Jes verdugo Referred To Contact Radiology Diagnoses Hydronephrosis, unspecified hydronephrosis type Procedures US RENAL LIMITED Yimi Ling MD [address] [facility], [address] [place] [address] Phone: tel: fax: Referral ID Status Reason Start Date Expiration Date V isits Requested Visits Authorized [id number] Not Required - RTA 05/04/2025 05/04/2026 1 1 Reason for Visit * Reason Comments New Patient New patient being se en here for hospital follow up URBANO, cystitis, hematuria. He does have a catheter in place. The patient continues to take the Flomax daily. He denies any catheter complications and has had good flow. No further issues with hematuria. * Eval and Treat (Routine) - Pending Review Specialty Diagnoses / Procedures Referred By Jes verdugo Referred To Contact Urology Diagnoses URBANO (acute kidney injury) Acute cystitis with hematuria Hydronephrosis, unspecified hydronephrosis type Virginia Vieira APRN - CNP [address] [place] [address] Phone: tel: fax: [facility] Part of [address] [place] [address] Phone: tel: fax: Referral ID Status Reason Start Date Expiration Date Visits Requested Visits Authorized [id number] Pending Review Specialty Services Required 04/20/2025 04/20/2026 1 1 Encounter Details Date Type Department Care Team (Late st Contact Info) Description 05/04/2025 8:00 AM EDT Office Visit [facility] Part of [address] [place] [address] Yimi Ling MD [address] [place] [address], [address] [place] [address] Hydronephrosis, unspecified hydronephrosis type (Primary Dx); Gross hematuria; BPH with obstruction/lower urinary tract symptoms; Bladder wall thickening Social History Tobacco Use Types Packs/Day Years Used Date Smoking Tobacco: Never Smokeless Tobacco: Never Tobacco Cessation:Counseling Given: Not Answered Alcohol Use Standard Drinks/Week Comments Yes 0 (1 standard drink = 0.6 oz pur e alcohol) 2-3 cans of beer per day [facility] Utilities Answer Date Recorded In the past 12 months has th e electric, gas, oil, or water company threatened to shut off services in your home? No 01/13/2025 Overall Financial Resource Strain (CARDIA) Answe r Date Recorded How hard is it for you to pa y for the very basics like food, housing, medical care, and heating? Not hard at all 08/31/2024 PHQ-2 Answer Date Recorded PHQ-9 Total Score 0 01/13/2025 Hunger Vital Sign Answer Date Recorded Within the past 12 months, y ou worried that your food would run out before you got the money to buy more. Never true 01/13/20 25 Within the past 12 months, t he food you bought just didn't last and you didn't have money to get more. Never true 01/13/2025 PRAPARE - Transportation Answer Date Re corded In the past 12 months, has l ack of transportation kept you from medical appointments or from getting medications? No 12/26 In the past 12 months, has l ack of transportation kept you from meetings, work, or from getting things needed for daily living? No 01/13/2025 Housing Stability Vital Sign Answer Luke e Recorded In the last 12 months, was t here a time when you were not able to pay the mortgage or rent on time? No 01/13/2025 In the past 12 months, how m any times have you moved where you were living? 0 01/13/2025 At any time in the past 12 m [facility], were you homeless or living in a assisted (including now)? No 01/13/2025 Food Insecurity Answer Date Recorded Within the past 12 months, y ou worried that your food would run out before you got the money to buy more. 1 01/13/2025 Within the past 12 months, t he food you bought just didn't last and you didn't have money to get more. 1 01/13/2025 Sex and Gender Information Value Date Recorded Sex Assigned at Male 03/22/2025 3:24 PM EDT Legal Sex Male 10:06 AM EDT Gender Identity Not on file Sexual Orientation Not on file documented as of this encounter Last Filed Vital Signs Vital Sign Reading Time Taken Comments Blood Pressure 127/73 05/04/2025 7:49 AM EDT Pulse 60 05/04/2025 7:49 AM EDT Temperature 36.1 C (96.9 F) 05/04/2025 7:49 AM EDT Respiratory Rate - - Oxygen Saturation - - Inhaled Oxygen Concentration - - Weight 83.5 kg (184 lb) 05/04/2025 7:49 AM EDT Height - - Body Mass Index 24.95 04/20/2025 1:01 PM EDT documented in this encounter Patient Instructions * Patient Instructions* Jerrica Urena LPN - 05/04/2025 7:46 AM EDT SURVEY: You may be receiving a survey from [employer] regarding your visit today. Please complete the survey to enable us to provide the highest quality of care to you and your family. If you cannot score us a very good on any question, please call the office to discuss how we could have made your experience a very good one. Thank you. documented in this encounter Progress Notes * Alda Zimmerman RN - 05/04/2025 8:20 AM EDT Pt had miller catheter placed on 04/10/2025 for UTI and urinary retention. Balloon deflated on catheter and catheter removed. Patient tolerated procedure well. Pt instructed to drink plenty of fluids, try to urinate q 2 hrs, call office in 6 hrs with update of amount voided, and if not voiding will need to return to office to have miller replaced. Also instructed to return to office or ER if goes >6 hrs without voiding or has strong urge to void/suprapubic discomfort and cannot urinate. Pt verbalizes understanding of plan. * Yimi Ling MD - 05/04/2025 8:04 AM EDT HPI: Patient is a 65 y.o. male in no acute distress. He is alert and oriented to person, place, and time. 8 patient being seen here today. Patient will be referred here by the emergency department. Patientis currently a Miller catheter in place. Patient does take daily Flomax. Patient did have a Miller catheter placed in the emergency department visit. He has had gross hematuria since then. Patient negative CT scan performed in the emergency department. This did not show any significant calcifications. This did show bilateral hydroureteronephrosis. With also thickened bladder wall. The patient has been on Flomax for approximately 2 weeks. Patient is never seen urology in the past. Patient has no pain today. His urine is draining clear today. He is having no leakage around the catheter. Past Medical History: Diagnosis Date Hypertension Past Surgical History: Procedure Laterality Date HERNIA REPAIR Outpatient Encounter Medications as of 05/04/2025 Medication Sig Dispense Refill tamsulosin (FLOMAX) 0.4 MG capsule Take 1 capsule by mouth daily lisinopril (PRINIVIL;ZESTRIL) 5 MG tablet Take 1 tablet by mouth daily 90 tablet 3 cefdinir (OMNICEF) 300 MG capsule Take 2 capsules by mouth daily (Patient not taking: Reported on 05/04/2025) No facility-administered encounter medications on file as of 05/04/2025. Current Outpatient Medications on File Prior to Visit Medication Sig Dispense Refill tamsulosin (FLOMAX) 0.4 MG capsule Take 1 capsule by mouth daily lisinopril (PRINIVIL;ZESTRIL) 5 MG tablet Take 1 tablet by mouth daily 90 tablet 3 cefdinir (OMNICEF) 300 MG capsule Take 2 capsules by mouth daily (Patient not taking: Reported on 05/04/2025) No current facility-administered medications on file prior to visit. Patient has no known allergies. Family History Problem Relation Age of Onset Heart Disease Mother Cancer Father Social History Tobacco Use Smoking Status Never Smokeless Tobacco Never Social History Substance and Sexual Activity Alcohol Use Yes Comment: 2-3 cans of beer per day BP 127/73 (BP Site: Right Upper Arm, Patient Position: Sitting, BP Cuff Size: Medium Adult) Pulse60 Temp 96.9 ??F (36.1 ??C) Wt 83.5 kg (184 lb) BMI 24.95 kg/m?? PHYSICAL EXAM: Constitutional: Patient in no acute distress; Neuro: alert and oriented to person place and time. Psych: Mood and affect normal. Skin: Normal Lungs: Respiratory effort normal Cardiovascular: Normal peripheral pulses Abdomen: Soft, non-tender, non-distended with no CVA, flank pain Bladder non-tender and not distended. Lymphatics: no palpable lymphadenopathy Penis normal Urethral meatus normal Scrotal exam normal Testicles normal bilaterally Epididymis normal bilaterally No evidence of inguinal hernia Lab Results Component Value Date BUN 16 04/26/2025 Lab Results Component Value Date CREATININE 1.37 (H) 04/26/2025 No results found for: PSA ASSESSMENT: This is a 65 y.o. male with the following diagnoses: Diagnosis Orders 1. Hydronephrosis, unspecified hydronephrosis type US RENAL LIMITED 2. Gross hematuria 3. BPH with obstruction/lower urinary tract symptoms 4. Bladder wall thickening PLAN: Patient will maintain Flomax. Will remove his Miller catheter today. He will follow-up with us in 2 to 4 weeks. This will be for cystoscopy. This will continue his gross hematuria workup. Will also plan for repeat renal ultrasound to see if his hydronephrosis has resolved. documented in this encounter Plan of Treatment Upcoming Encounters Date Type Department Care Team (Late st Contact Info) Description 06/02/2025 4:15 PM EDT Procedure visit [facility] Part of [address] [place] [address] Yimi Ling MD [address] [facility], [address] [place] [address] cysto/ review renal US 09/02/2025 9:00 AM EDT Office Visit [facility] [address] [place] [id number] Virginia Vieira APRN - HYDROBLASTER [address] [place] [address] welcome to medicare documented as of this encounter Results * US RENAL LIMITED (05/05/2025 11:13 AM EDT) Anatomical Region Laterality Modality Abdomen Ultrasound 05/06/2025 1:51 PM EDT Impressions 05/06/2025 1:52 PM EDT 1. Moderate left hydronephrosis. 2. Urinary bladder distension and large postvoid residual. Narrative 05/06/2025 1:52 PM EDT EXAMINATION: ULTRASOUND OF THE KIDNEYS 05/05/2025 11:02 am COMPARISON: None. HISTORY: ORDERING SYSTEM PROVIDED HISTORY: Hydronephrosis, unspecified hydronephrosis type TECHNOLOGIST PROVIDED HISTORY: This procedure can be scheduled via [employer]. FINDINGS: The right kidney measures 10.1 cm in length and the left kidney measures 9.5 cm in length. Normal renal cortical echogenicity. Moderate left hydronephrosis. No nephrolithiasis. Urinary bladder 868 mL distension. Postvoid residual 535 mL. Procedure Note Shamir Polo DO - 05/06/2025 EXAMINATION: ULTRASOUND OF THE KIDNEYS 05/05/2025 11:02 am COMPARISON: None. HISTORY: ORDERING SYSTEM PROVIDED HISTORY: Hydronephrosis, unspecifiedhydronephrosis type TECHNOLOGIST PROVIDED HISTORY: This procedure can be scheduled via MyChart. FINDINGS: The right kidney measures 10.1 cm in length and the left kidney measures9.5 cm in length. Normal renal cortical echogenicity. Moderate left hydronephrosis. No nephrolithiasis. Urinary bladder 868 mL distension. Postvoid residual 535 mL. IMPRESSION: 1. Moderate left hydronephrosis. 2. Urinary bladder distension and large postvoid residual. Yimi Ling MD [facility] ORDERABLES Final Resu lt documented in this encounter Visit Diagnoses Diagnosis Hydronephrosis, unspecified hydronephrosis type- Primary Gross hematuria BPH with obstruction/lower urinary tract symptoms Hypertrophy of prostate with urinary obstruction and other lower urinary tract symptoms (LUTS) Bladder wall thickening Other specified disorders of bladder Hydronephrosis, unspecified hydronephrosis type documented in this encounter Additional Health Concerns Assessment Noted Time A fall risk assessment has been complete d for the patient 03/25/2025 8:57 AM EDT documented as of this encounter Care Teams Certified Ethical Hacker Relationship Specialty Start Date End Date Virginia Vieira APRN - BOB [address] [place] [address] PCP - General Family Medicine 08/31/24 documented as of this encounter
--- OUTSIDE RECORDS SUMMARY | 2025-05-04 08:00 | XMS_ITS | Encounter Summary ---
Author Organization [facility] Address [address] [place] [address] Care Team Providers Care Carton Gluing Machine Operator Name Role Phone Virginia Vieira APRN, CNP Primary Care Provider Reason for Referral * Imaging (Routine) - Not Required - RTA Specialty Diagnoses / Procedures Referred By Jes verdugo Referred To Contact Radiology Diagnoses Hydronephrosis, unspecified hydronephrosis type Procedures US RENAL LIMITED Yimi Ling MD [address] [facility], [address] [place] [address] Phone: tel: fax: Referral ID Status Reason Start Date Expiration Date V isits Requested Visits Authorized [id number] Not Required - RTA 05/04/2025 05/04/2026 1 [...] Virginia Vieira APRN - CNP [address] [place] [address] Phone: tel: fax: [facility] Part of [address] [place] [address] Phone: tel: fax: Referral ID Status Reason Start Date Expiration Date Visits Requested Visits Authorized [id number] Pending Review Specialty Services Required 04/20/2025 04/20/2026 1 1 Encounter Details Date Type Department Care Team (Late st Contact Info) Description 05/04/2025 8:00 AM EDT Office Visit [facility] Part of [address] [place] [address] Yimi Ling MD [address] [place] [address], [address] [place] [address] Hydronephrosis, unspecified hydronephrosis type (Primary Dx); Gross hematuria; BPH with obstruction/lower urinary tract symptoms; Bladder wall thickening Social History Tobacco Use Types Packs/Day Years Used Date Smoking Tobacco: Never Smokeless Tobacco: Never Tobacco Cessation:Counseling Given: Not Answered Alcohol Use Standard Drinks/Week Comments Yes 0 (1 standard drink = 0.6 oz pur e alcohol) 2-3 cans of beer per day [facility] Utilities Answer Date Recorded In the past [...] any time in the past 12 m [facility], were you homeless or living in a detention (including now)? No 01/13/2025 Food Insecurity Answer [...] You may be receiving a survey from [employer] regarding your visit today. Please complete the [...] Description 06/02/2025 4:15 PM EDT Procedure visit [facility] Part of [address] [place] [address] Yimi Ling MD [address] [facility], [address] [place] [address] cysto/ review renal US 09/02/2025 9:00 AM EDT Office Visit [facility] [address] [place] [id number] Virginia Vieira APRN - MANNEQUIN COLORING ARTIST [address] [place] [address] welcome to medicare documented as [...] HISTORY: This procedure can be scheduled via [employer]. FINDINGS: The right kidney measures 10.1 cm [...] and large postvoid residual. Yimi Ling MD [facility] ORDERABLES Final Resu lt documented in this [...] documented as of this encounter Care Teams Carton Gluing Machine Operator Relationship Specialty Start Date End Date Virginia Vieira APRN - BOB [address] [place] [address] PCP - General Family Medicine 08/31/24 documented as of this encounter
--- OUTSIDE RECORDS SUMMARY | 2025-05-05 11:00 | XMS_ITS | Encounter Summary ---
Author Organization [facility] Address [address] [place] [address] Care Team Providers Care Receptionist/Telephone Operator Name Role Phone Virginia Vieira THUAN - RUBBER ATTACHER Primary Care Provider Reason for Referral * Imaging (Routine) - Not Required - RTA Specialty Diagnoses / Procedures Referred By Jes verdugo Referred To Contact Radiology Diagnoses Hydronephrosis, unspecified hydronephrosis type Procedures US RENAL LIMITED Yimi Ling MD [address] [facility], [address] [place] [address] Phone: tel: fax: Referral ID Status Reason Start Date Expiration Date V isits Requested Visits Authorized [id number] Not Required - RTA 05/04/2025 05/04/2026 1 1 Reason for Visit * Imaging (Routine) - Not Required - RTA Specialty Diagnoses / Procedures Referred By Jes verdugo Referred To Contact Radiology Diagnoses Hydronephrosis, unspecified hydronephrosis type Procedures US RENAL LIMITED Yimi Ling MD [address] [facility], [address] [place] [address] Phone: tel: fax: Referral ID Status Reason Start Date Expiration Date V isits Requested Visits Authorized [id number] Not Required - RTA 05/04/2025 05/04/2026 1 1 Encounter Details Date Type Department Care Team (Latest Contact Info) Description 05/05/2025 11:00 AM EDT - 05/07/2025 11:59 PM EDT Hospital Encounter [facility] Ultrasound [address], [place] [phone] Yimi Ling MD [address] [facility], [address] [place] [address] Hydronephrosis, unspecified hydronephrosis type Discharge Disposition: Home or Self Care Social History Tobacco Use Types Packs/Day Years Used Date Smoking Tobacco: Never Smokeless Tobacco: Never Alcohol Use Standard Drinks/Week Comments Yes 0 (1 standard drink = 0.6 oz pur e alcohol) 2-3 cans of beer per day [facility] Utilities Answer Date Recorded In the [...] any time in the past 12 m [facility], were you homeless or living in [...] on file documented as of this encounter Medications at Time of Discharge tamsulosin (FLOMAX) 0.4 MG capsule Take 1 capsule by mouth daily cefdinir (OMNICEF) 300 MG capsule Take 2 capsules by mouth daily lisinopril (PRINIVIL;ZESTRIL ) 5 MG tabletIndications :Hypertension, unspecified type Take 1 tablet by mouth daily 90 tablet 3 04/05/2025 documented as of this encounter Plan of Treatment Upcoming Encounters Date Type Department Care Team (Late st Contact Info) Description 06/02/2025 4:15 PM EDT Procedure visit [facility] UROLOGY Part of [address] [place] [phone] Yimi Ling MD [address] [facility], [address] [place] [id number] cysto/ review renal US 09/02/2025 9:00 AM EDT Office Visit [facility] [address] [place] [address] Virginia Vieira APRN - BOB [address] [place] [phone] welcome to medicare documented as of this encounter Procedures Procedure Name Priority Date/Time Associated Diagnosis Comments US RENAL LIMITED Routine 05/05/2025 11:1 3 AM EDT Hydronephrosis, unspecified hydronephrosis type documented in this encounter Results * US RENAL LIMITED [...] HISTORY: This procedure can be scheduled via [employer]. FINDINGS: The right kidney measures 10.1 cm in length and the left kidney measures 9.5 cm in length. Normal renal cortical echogenicity. Moderate left hydronephrosis. No nephrolithiasis. Urinary bladder 868 mL distension. Postvoid residual 535 mL. Procedure Note Shamir Polo, DO - 05/06/2025 EXAMINATION: ULTRASOUND OF THE KIDNEYS 05/05/2025 11:02 am COMPARISON: None. HISTORY: ORDERING SYSTEM PROVIDED HISTORY: Hydronephrosis, unspecifiedhydronephrosis type TECHNOLOGIST PROVIDED HISTORY: This procedure can be scheduled via [employer]. FINDINGS: The right kidney measures 10.1 cm in length and the left kidney measures9.5 cm in length. Normal renal cortical echogenicity. Moderate left hydronephrosis. No nephrolithiasis. Urinary bladder 868 mL distension. Postvoid residual 535 mL. IMPRESSION: 1. Moderate left hydronephrosis. 2. Urinary bladder distension and large postvoid residual. Yimi Ling MD [facility] ORDERABLES Final Resu lt documented in this encounter Visit Diagnoses Diagnosis Hydronephrosis, unspecified hydronephrosis type documented in this encounter Additional Health Concerns Assessment Noted Time A fall risk assessment has been complete d for the patient 03/25/2025 8:57 AM EDT documented as of this encounter Care Teams Receptionist/Telephone Operator Relationship Specialty Start Date End Date Virginia Vieira APRN - BOB [address] [place] [address] PCP - General Family Medicine 08/31/24 documented as of this encounter
--- OUTSIDE RECORDS SUMMARY | 2025-05-05 11:00 | XMS_ITS | Encounter Summary ---
Author Organization [facility] Address [address] [place] [address] Care Team Providers Care Professional Skater Name Role Phone Virginia Vieira THUAN - WHIZZER Primary Care Provider Reason for Referral * Imaging (Routine) - Not Required - RTA Specialty Diagnoses / Procedures Referred By Jes verdugo Referred To Contact Radiology Diagnoses Hydronephrosis, unspecified hydronephrosis type Procedures US RENAL LIMITED Yimi Ling MD [address] [facility], [address] [place] [address] Phone: tel: fax: Referral ID Status Reason Start Date Expiration Date V isits Requested Visits Authorized [id number] Not Required - RTA 05/04/2025 05/04/2026 1 1 Reason for Visit * Imaging (Routine) - Not Required - RTA Specialty Diagnoses / Procedures Referred By Jes verdugo Referred To Contact Radiology Diagnoses Hydronephrosis, unspecified hydronephrosis type Procedures US RENAL LIMITED Yimi Ling MD [address] [facility], [address] [place] [address] Phone: tel: fax: Referral ID Status Reason Start Date Expiration Date V isits Requested Visits Authorized [id number] Not Required - RTA 05/04/2025 05/04/2026 1 1 Encounter Details Date Type Department Care Team (Latest Contact Info) Description 05/05/2025 11:00 AM EDT Hospital Encounter [facility] Ultrasound [address] [place] [address] Yimi Ling MD [address] [facility], [address] [place], [place] [phone] Hydronephrosis, unspecified hydronephrosis type Social History Tobacco Use Types Packs/Day Years Used Date Smoking Tobacco: Never Smokeless Tobacco: Never Alcohol Use Standard Drinks/Week Comments Yes 0 (1 standard drink = 0.6 oz pur e alcohol) 2-3 cans of beer per day [facility] Utilities Answer Date Recorded In the [...] any time in the past 12 m [facility], were you homeless or living in a fpc (including now)? No 01/13/2025 Food Insecurity Answer [...] on file documented as of this encounter Plan of Treatment Upcoming Encounters Date Type Department Care Team (Late st Contact Info) Description 06/02/2025 4:15 PM EDT Procedure visit [facility] UROLOG[facility] Part of [facility] [address] [facility] [address] [place] [address] Yimi Ling MD [address] [facility], [address] [place] [address] cysto/ review renal US 09/02/2025 9:00 AM EDT Office Visit Shola Easton MD [facility] [address] [place] [address] Virginia Vieira APRN - BOB [address] [place] [address] welcome to medicare documented as [...] HISTORY: This procedure can be scheduled via [employer] FINDINGS: The right kidney measures 10.1 cm [...] HISTORY: This procedure can be scheduled via [employer]. FINDINGS: The right kidney measures 10.1 cm in length and the left kidney measures9.5 cm in length. Normal renal cortical echogenicity. Moderate left hydronephrosis. No nephrolithiasis. Urinary bladder 868 mL distension. Postvoid residual 535 mL. IMPRESSION: 1. Moderate left hydronephrosis. 2. Urinary bladder distension and large postvoid residual. Yimi Ling MD [facility] ORDERABLES Final Resu lt documented in this encounter Visit Diagnoses Diagnosis Hydronephrosis, unspecified hydronephrosis type documented in this encounter Additional Health Concerns Assessment Noted Time A fall risk assessment has been complete d for the patient 03/25/2025 8:57 AM EDT documented as of this encounter Care Teams Professional Skater Relationship Specialty Start Date End Date Virginia Vieira APRN - BOB [address] [place] [address] PCP - General Family Medicine 08/31/24 documented as of this encounter
[2025-05-07] VITALS (56 sets, daily range): BP systolic 108–146; BP diastolic 62–94; PULSE 59–165; TEMP 36.7–36.8; O2SAT 97–100; BMI 26.4; BMI 60.0
--- NOTE | 2025-05-07 11:02 | ED.CHESTPAI1 ---
HPI - Chest Pain General Chief Complaint: Chest Pain Stated Complaint: CHEST PAIN Time Seen by Provider: 05/07/25 11:02 Source: patient Mode of arrival: walk-in History of Present Illness HPI narrative: The patient is 65-year-old male with history of hypertension and BPH, is coming to the ER with a episode of chest pain and jaw pain that started while he was urinating, patient mentioned that all of a sudden he felt some chest pain and dizziness and he started having some jaw pain, by the time he came to the ER he does not have any more pain in his chest but he have some jaw pain and he have the sense of his heart racing Patient have no previous history of any coronary artery disease or any similar incidents He was not doing any exertion according to him today when this happened except urinating Related Data Home Medications ?Medication ?Instructions ?Recorded ?Confirmed lisinopril 5 mg tablet 5 mg PO DAILY 04/10/25 05/07/25 Previous Rx's ?Medication ?Instructions ?Recorded tamsulosin 0.4 mg capsule 0.4 mg PO QD #30 caps 04/12/25 Allergies Allergy/AdvReac Type Severity Reaction Status Date / Time No Known Drug Allergies Allergy Verified 04/10/25 06:07 Review of Systems ROS Status of ROS 10 or more systems reviewed and unremarkable except as noted in history and below [facility] Medical History (Updated 05/07/25 @ 13:44 by Wendy Lindsey MD) A-fib ?I48.91 - Unspecified atrial fibrillation (ICD-10) Hydronephrosis due to obstruction of bladder ?N13.30 - Unspecified hydronephrosis (ICD-10) ?N32.0 - Bladder-neck obstruction (ICD-10) Urinary retention due to benign prostatic hyperplasia ?N40.1 - Benign prostatic hyperplasia with lower urinary tract symptoms (ICD-10) ?R33.8 - Other retention of urine (ICD-10) URBANO (acute kidney injury) ?N17.9 - Acute kidney failure, unspecified (ICD-10) Acute UTI ?N39.0 - Urinary tract infection, site not specified (ICD-10) Acute renal failure ?N17.9 - Acute kidney failure, unspecified (ICD-10) Acute urinary retention ?R33.8 - Other retention of urine (ICD-10) HTN (hypertension) ?I10 - Essential (primary) hypertension (ICD-10) Borderline high blood pressure ?R03.0 - Elevated blood-pressure reading, without diagnosis of hypertension (ICD-10) Social History Smoking status: Never smoker Non-prescribed substance use: denies use Previous occupational history: retired Known occupational exposures/hazards: No Highest level of school completed/degree received: high school graduate Little interest or pleasure in doing things: not at all Feeling down, depressed, or hopeless: not at all Exam Narrative Exam Narrative: Nurses notes and vital signs reviewed and patient is not hypoxic. General: Well-appearing and in no apparent distress. Skin: Warm, dry, no pallor noted. No rash. Head: Normocephalic, atraumatic. Neck: Supple, non-tender. Cardiovascular: Irregular heart rate and Rhythm without murmur, gallop or rub. Respiratory: No accessory muscle use or respiratory distress. Lungs are clear to auscultation, no wheezing, rales or rhonchi Chest Wall: no tenderness Back: No midline thoracic or lumbar vertebral tenderness. No CVA tenderness Musculoskeletal: normal ROM, no calf or popliteal tenderness, no lower extremity edema/swelling GI: Abdomen is soft, non-distended. Normal bowel sounds. No masses appreciated. No tenderness to palpation. No rebound, guarding, or rigidity noted. Neurological: A&O x4. No cranial nerve dysfunction observed. Constitutional Vital Signs, click to edit/add: Last Vital Signs Temp 98.2 F 05/07/25 10:51 Pulse 69 05/07/25 13:50 Resp 18 05/07/25 13:50 BP 124/77 05/07/25 13:47 Pulse Ox 100 05/07/25 13:50 O2 Del Method Room Air 05/07/25 10:51 Course Vital Signs Vital signs: Vital Signs Temperature 98.2 F 05/07/25 10:51 Pulse Rate 153 H 05/07/25 10:51 Respiratory Rate 20 05/07/25 10:51 Blood Pressure 115/74 05/07/25 10:51 Pulse Oximetry 99 05/07/25 10:51 Oxygen Delivery Method Room Air 05/07/25 10:51 Temperature 98.2 F 05/07/25 10:51 Pulse Rate 69 05/07/25 13:50 Respiratory Rate 18 05/07/25 13:50 Blood Pressure 124/77 05/07/25 13:47 Pulse Oximetry 100 05/07/25 13:50 Oxygen Delivery Method Room Air 05/07/25 10:51 MDM - Chest Pain MDM Narrative Medical decision making narrative: Upon arrival the patient is having EKG that showing A-fib with a heart rate of 147, the patient has no ST elevation or depression Upon arrival the patient was started on Cardizem 20 mg IV after which she was heart rate was controlled to 120 but is still in A-fib The patient then became sinus before the Cardizem drip was started The patient CBC showed no acute pathology The patient troponin initially was 8 and the rest of the chemistry was not showing acute pathology It was noted that the patient A-fib resolved before the start of the Cardizem drip and he was only provided with aspirin here 324 mg after the initial plan what to monitor the second troponin and decide about observation The patient case was discussed with Dr Carrasco and cardiology service and he recommended after the patient troponin went from 8---> to 25 that the patient to be observed especially with the patient history of visual pain that initially with at the beginning of his symptoms The plan to admit the patient to [facility] for further observation over the monitoring and trending of the troponin. Patient case was discussed with and he agreed with above-mentioned plan Lab Data Labs: Lab Results 05/07/25 05/07/25 Range/Units 11:05 12:40 WBC 8.3 (4.0-11.0) 10^3/uL RBC 4.43 L (4.70-6.10) 10^6/uL Hgb 12.6 L (14.0-18.0) g/dL Hct 37.2 L (42.0-54.0) % MCV 84.0 (80.0-94.0) fL MCH 28.4 (25.9-34.0) pg MCHC 33.9 (29.9-35.2) g/dL RDW 13.2 (11.0-15.0) % Plt Count 143 L (150-450) 10^3/uL MPV 10.0 (9.5-13.5) fL Neut % (Auto) 73.1 (43.0-75.0) % Lymph % (Auto) 16.8 L (20.5-60.0) % [place] % (Auto) 7.5 (1.7-12.0) % Eos % (Auto) 1.8 (0.9-7.0) % Baso % (Auto) 0.6 (0.2-2.0) % Neut # (Auto) 6.1 (1.4-6.5) 10^3/uL Lymph # (Auto) 1.4 (1.2-3.8) 10^3/uL [place] # (Auto) 0.6 (0.3-0.8) 10^3/uL Eos # (Auto) 0.2 (0.0-0.7) 10^3/uL Baso # (Auto) 0.1 (0.0-0.1) 10^3/uL Abs Immat Gran (auto) 0.02 (0.00-0.03) 10^3/uL Imm/Tot Granulo (auto) 0.2 (0.0-0.5) % PT 12.8 H (9.0-11.6) sec INR 1.23 Sodium 141 (136-145) mmol/L Potassium 4.2 (3.5-5.1) mmol/L Chloride 104 (98-107) mmol/L Carbon Dioxide 24.2 (21.0-32.0) mmol/L Anion Gap 17.0 BUN 31.0 H (7.0-18.0) mg/dL Creatinine 1.49 H (0.70-1.30) mg/dL Est GFR ( Amer) 57 L (>=60 mL/min/1.73m^2) Est GFR (Non-Af Amer) 47 L (>=60 mL/min/1.73m^2) BUN/Creatinine Ratio 20.8 Glucose 101 (74-106) mg/dL Calcium 9.3 (8.5-10.1) mg/dL Magnesium 1.8 (1.8-2.4) mg/dL Total Bilirubin 0.8 (0.2-1.0) mg/dL AST 19 (15-37) U/L ALT 22 (16-63) U/L Alkaline Phosphatase 86 (46-116) U/L Troponin I High Sens 8.0 25.6 (4.0-76.1) pg/mL Total Protein 7.5 (6.4-8.2) g/dL Albumin 3.8 (3.4-5.0) g/dL Globulin 3.7 g/dL Albumin/Globulin Ratio 1.0 Urine Color Lt. yellow (YELLOW) Urine Clarity Clear (CLEAR) Urine pH 6.0 (5.0-9.0) Ur Specific [place] 1.010 (1.005-1.025) Urine Protein Negative (NEG/TRACE) mg/dL Urine Glucose (UA) Negative (NEGATIVE) mg/dL Urine Ketones Negative (NEGATIVE) mg/dL Urine Occult Blood Trace-i (NEGATIVE) Urine Nitrite Negative (NEGATIVE) Urine Bilirubin Negative (NEGATIVE) Urine Urobilinogen 0.2 (0.2-1.0) EU/dL Ur Leukocyte Esterase Small A (NEGATIVE) Urine RBC 0-2 (0-2) #/HPF Urine WBC 10-20 A (NONE SEEN) #/HPF Ur Squamous Epith Cells Rare (NONE/RARE) #/LPF Urine Crystals None seen (None Seen) #/HPF Urine Bacteria Small A (NONE SEEN) #/HPF Urine Casts None seen (NONE SEEN) #/LPF Urine Mucus None seen (NONE SEEN) Ur Culture Indicated? Yes-[facility] Discharge Plan Discharge Chief Complaint: Chest Pain Clinical Impression: Chest pain, New onset a-fib, Jaw pain Prescriptions / Home Meds: No Action lisinopril 5 mg tablet 5 mg PO DAILY tamsulosin 0.4 mg Capsule 0.4 mg PO QD Qty: 30 11RF Print Language: Turkmen Referrals: DEION HANNAH [Primary Care Provider, Family Practice] - 1 week
--- NOTE | 2025-05-07 11:03 | ECG_ITS ---
[facility] Test Date: 2025-05-07 Pat Name: MICHAEL CAMPBELL Department: Room: - Gender: Male Equipment Operating Engineer: : 1960 Requested By: [id number] Order Number: [id number] Reading MD: RAMONE GARZA M.D. Measurements Intervals [place] Rate: 147 P: -[id number] MS: -61188 QRS: 65 QRSD: 72 T: 19 QT: 266 QTc: 350 Interpretive Statements 51839 Atrial fibrillation with rapid ventricular response Nonspecific ST & Twave abnormality 9150 abnormal ECG Compared to ECG 03/30/2021 13:51:04 Atrial fibrillation has replaced sinus bradycardia ST (T wave) deviation now present Electronically Signed On 05-08-2025 8:47:03 EDT by RAMONE GARZA M.D.
--- NOTE | 2025-05-07 11:03 | XR_ITS ---
[address] [address] Patient Name: MICHAEL CAMPBELL MRN: [id number] date: 1960 Sex: M Assigned Patient Location: ER Current Patient Location: ER Accession/Order Number: [id number] Exam Date: 05/07/2025 11:24 Report Date: 05/07/2025 11:25 At the request of: YUAN DOTSON MD Procedure: XR chest 1V Plain film chest Single view HISTORY: Chest pain COMPARISON: None FINDINGS: SUPPORT DEVICES: None POSTSURGICAL CHANGES: None HEART: Within normal limits PULMONARY SARAH: Within normal limits MEDIASTINUM: Unremarkable LUNGS AND PLEURA: No acute lung process, pleural effusion or pneumothorax identified. BONY STRUCTURES: Intact ADDITIONAL FINDINGS None XR/XR chest 1V IMPRESSION: No acute process. Impression dictated by: Leo Nash M.D. 05/07/2025 11:25 AM Dictation Location: [place] [address] Electronically authenticated by: [id number] Y Date: 05/07/2025 11:25
[2025-05-07] MEDS: DILTIAZEM HCL 25 MG/5 ML VIAL 20 MG IV (11:12)
[2025-05-07 11:15] LABS: Basophils Absolute Auto 0.1 10^3/uL (0.0-0.1); Basophils Percent Auto 0.6 % (0.2-2.0); Eosinophils Absolute Auto 0.2 10^3/uL (0.0-0.7); Eosinophils Percent Auto 1.8 % (0.9-7.0); Hematocrit 37.2 % (42.0-54.0); Hemoglobin 12.6 g/dL (14.0-18.0); Immature Granulocytes Abs Auto 0.02 10^3/uL (0.00-0.03); Immature Granulocytes Pct Auto 0.2 % (0.0-0.5); Lymphocytes Absolute Auto 1.4 10^3/uL (1.2-3.8); Lymphocytes Percent Auto 16.8 % (20.5-60.0); Mean Corpuscular HGB Conc 33.9 g/dL (29.9-35.2); Mean Corpuscular Hemoglobin 28.4 pg (25.9-34.0); Monocytes Absolute Auto 0.6 10^3/uL (0.3-0.8); Monocytes Percent Auto 7.5 % (1.7-12.0); Neutrophils Absolute Auto 6.1 10^3/uL (1.4-6.5); Neutrophils Percent Auto 73.1 % (43.0-75.0); Platelet Count 143 10^3/uL (150-450); Red Blood Count 4.43 10^6/uL (4.70-6.10); Red Cell Distribution Width 13.2 % (11.0-15.0); White Blood Count 8.3 10^3/uL (4.0-11.0)
[2025-05-07 11:36] LABS: INR 1.23; Prothrombin Time 12.8 sec (9.0-11.6)
[2025-05-07 11:40] LABS: Alanine Aminotransferase 22 U/L (16-63); Albumin Level 3.8 g/dL (3.4-5.0); Alkaline Phosphatase 86 U/L (46-116); Aspartate Amino Transferase 19 U/L (15-37); BUN Creatinine Ratio 20.8; Bilirubin Total 0.8 mg/dL (0.2-1.0); Calcium 9.3 mg/dL (8.5-10.1); Carbon Dioxide 24.2 mmol/L (21.0-32.0); Chloride 104 mmol/L (98-107); Estimated GFR (African America 57 (>=60 mL/min/1.73m^2); Estimated GFR (Non-African Ame 47 (>=60 mL/min/1.73m^2); Globulin 3.7 g/dL; Glucose 101 mg/dL (74-106); Potassium 4.2 mmol/L (3.5-5.1); Sodium 141 mmol/L (136-145); Total Protein 7.5 g/dL (6.4-8.2)
[2025-05-07 11:42] LABS: Magnesium 1.8 mg/dL (1.8-2.4)
--- OUTSIDE RECORDS SUMMARY | 2025-05-07 11:50 | XMS_ITS | Encounter Summary ---
Author Organization [facility] [employer] Address [id number] [address] [place] [address] Care Team Providers Care Human Resources Coordinator Name Role Phone Unavailable Primary Care Provider Unavailabl e Reason for Visit * Reason Comments Med Refill Encounter Details Date Type Department Care Team (Late st Contact Info) Description 10/05/2019 Refill [facility] [address] [facility] [place] [address] Anny Arenas DO [address] [facility] [place] [address] Social History Tobacco Use Types Packs/Day Years Used Date Smoking Tobacco: Never Smokeless Tobacco: Never Alcohol Use Standard Drinks/Week Comments Yes 0 (1 standard drink = 0.6 oz pur e alcohol) daily PHQ-2 Answer Date Recorded Total Score 0 07/30/2018 Childcare Answer Date Recorded Childcare Unknown 05/05/2019 Employment Answer Date Recorded Employment Unknown 05/05/2019 Sex and Gender Information Value Date Recorded Sex Assigned at Not on file Legal Sex Male 11:56 AM EDT Gender Identity Not on file Sexual Orientation Not on file documented as of this encounter Miscellaneous Notes * Telephone Encounter - Anny Arenas DO - 10/05/2019 12:18 AM EST Needs apt documented in this encounter Plan of Treatment Not on file documented as of this encounter Visit Diagnoses Not on filedocumented in this encounter Additional Health Concerns Assessment Noted Time PHQ-9 Depression Total Score: 0 07/30/20 18 10:00 AM EDT documented as of this encounter
--- OUTSIDE RECORDS SUMMARY | 2025-05-07 11:50 | XMS_ITS | Encounter Summary ---
Author Organization [facility] Nunn [facility] Address [address] [place] [address] Care Team Providers Care Training Associate Name Role Phone Virginia Vieira COUNTY COMMISSIONER - MANUAL ARTS THERAPIST Primary Care Provider Encounter Details Date Type Department Care Team (Late st Contact Info) Description 04/14/2025 Abstract CShani Easton MD [facility] [address] [place] [address] Jan Easton MD [address] [place] [address] Social History Tobacco Use Types Packs/Day Years Used Date Smoking Tobacco: Never Smokeless Tobacco: Never Alcohol Use Standard Drinks/Week Comments Yes 0 (1 standard drink = 0.6 oz pur e alcohol) 2-3 cans of beer per day [facility] Utilities Answer Date Recorded In the past 12 months has [employer], gas, oil, or water [employer] threatened to shut off services in your [...] any time in the past 12 m [facility], were you homeless or living in a longterm (including now)? No 01/13/2025 Food Insecurity Answer [...] Description 06/02/2025 4:15 PM EDT Procedure visit [facility] UROLOGY Part of [address] [place] [address] Yimi Ling MD [address] [facility] [address] [place], [address] [place] [address] cysto/ review renal US 09/02/2025 9:00 AM EDT Office Visit [facility] [address] [place] [address] Virginia Vieira, THUAN - MANUAL ARTS THERAPIST [address] [place] [address] welcome to medicare documented as of this encounter Visit Diagnoses Not on filedocumented in this encounter Additional Health Concerns Assessment Noted Time A fall risk assessment has been complete d for the patient 03/25/2025 8:57 AM EDT documented as of this encounter Care Teams Training Associate Relationship Specialty Start Date End Date Virginia Vieira APRN - BOB [address] [place] [address] PCP - General Family Medicine 08/31/24 documented as of this encounter
--- OUTSIDE RECORDS SUMMARY | 2025-05-07 11:50 | XMS_ITS | Encounter Summary ---
Author Organization [facility] Address [address] [place] [address] Care Team Providers Care Fly Winder Name Role Phone Virginia Vieira APRN - BOB Primary Care Provider Encounter Details Date Type Department Care Team (Late st Contact Info) Description 04/29/2025 Results Follow-Up Shola Easton MD [facility] [address] [place] [phone] Virginia Vieira APRN - CNP [address] [place] [address] Social History Tobacco Use Types Packs/Day Years Used Date Smoking Tobacco: Never Smokeless Tobacco: Never Alcohol Use Standard Drinks/Week Comments Yes 0 (1 standard drink = 0.6 oz pur e alcohol) 2-3 cans of beer per day [facility] Utilities Answer Date Recorded In the past 12 months has [employer], gas, oil, or water [employer] threatened to shut off services in your [...] any time in the past 12 m [facility], were you homeless or living in a retirement (including now)? No 01/13/2025 Food Insecurity Answer [...] Description 06/02/2025 4:15 PM EDT Procedure visit [facility] UROLOGY Part of [address] [place] [address] Yimi Ling MD [address] [place] [address], [address] [place] [address] cysto/ review renal US 09/02/2025 9:00 AM EDT Office Visit Shola Easton MD [facility] [address] [place] [phone] Virginia Vieira, THUAN - AMERICAN SIGN LANGUAGE TEACHER [address] [place] [address] welcome to medicare documented as of this encounter Visit Diagnoses Not on filedocumented in this encounter Additional Health Concerns Assessment Noted Time A fall risk assessment has been complete d for the patient 03/25/2025 8:57 AM EDT documented as of this encounter Care Teams Fly Winder Relationship Specialty Start Date End Date Virginia Vieira APRN - BOB [address] [place] [address] PCP - General Family Medicine 08/31/24 documented as of this encounter
--- OUTSIDE RECORDS SUMMARY | 2025-05-07 11:50 | XMS_ITS | Encounter Summary ---
Author Organization [facility] Address [address] [place] [address] Care Team Providers Care Caterpillar Operator Name Role Phone Virgniia Vieira APRN - BOB Primary Care Provider Encounter Details Date Type Department Care Team (Late st Contact Info) Description 03/28/2025 Results Follow-Up Shola Easton MD [facility] [address] [place] [phone] Virginia Vieira APRN - CNP [address] [place] [address] Social History Tobacco Use Types Packs/Day Years Used Date Smoking Tobacco: Never Smokeless Tobacco: Never Alcohol Use Standard Drinks/Week Comments Yes 0 (1 standard drink = 0.6 oz pur e alcohol) 2-3 cans of beer per day [facility] Utilities Answer Date Recorded In the past 12 months has [employer], gas, oil, or water [employer] threatened to shut off services in your [...] any time in the past 12 m [facility], were you homeless or living in a group home (including now)? No 01/13/2025 Food Insecurity Answer [...] Description 06/02/2025 4:15 PM EDT Procedure visit [facility] UROLOGY Part of [address] [place] [address] Yimi Ling MD [address] [place] [address], [address] [place] [address] cysto/ review renal US 09/02/2025 9:00 AM EDT Office Visit Shola Easton MD [facility] [address] [place] [phone] Virginia Vieira, THUAN - LEAN ENGINEER [address] [place] [address] welcome to medicare documented as of this encounter Visit Diagnoses Not on filedocumented in this encounter Additional Health Concerns Assessment Noted Time A fall risk assessment has been complete d for the patient 03/25/2025 8:57 AM EDT documented as of this encounter Care Teams Caterpillar Operator Relationship Specialty Start Date End Date Virginia Vieira APRN - BOB [address] [place] [address] PCP - General Family Medicine 08/31/24 documented as of this encounter
--- OUTSIDE RECORDS SUMMARY | 2025-05-07 11:50 | XMS_ITS | Encounter Summary ---
Author Organization [facility] Address [address] [place] [address] Care Team Providers Care Dairy Nutrition Specialist Name Role Phone Virginia Vieira BLAST FURNACE SUPERVISOR - RECEPTIONIST SECRETARY Primary Care Provider Encounter Details Date Type Department Care Team (Late st Contact Info) Description 05/06/2025 Abstract CShani Easton MD [facility] [address] [place] [address] Jan Easton MD [address] [place] [address] Social History Tobacco Use Types Packs/Day Years Used Date Smoking Tobacco: Never Smokeless Tobacco: Never Alcohol Use Standard Drinks/Week Comments Yes 0 (1 standard drink = 0.6 oz pur e alcohol) 2-[address] of beer per [facility] Utilities Answer Date Recorded In the past 12 months has [employer], gas, oil, or water [employer] threatened to shut off services in your [...] any time in the past 12 m [facility], were you homeless or living in a [...] Description 06/02/2025 4:15 PM EDT Procedure visit [facility] UROLOGY Part of [address] [place] [address] Yimi Ling MD [address] [facility], [address] [place] [address] cysto/ review renal US 09/02/2025 9:00 AM EDT Office Visit [facility] [address] [place] [address] Virginia Vieira, THUAN - RECEPTIONIST SECRETARY [address] [place] [address] welcome to medicare documented as of this encounter Visit Diagnoses Not on filedocumented in this encounter Additional Health Concerns Assessment Noted Time A fall risk assessment has been complete d for the patient 03/25/2025 8:57 AM EDT documented as of this encounter Care Teams Dairy Nutrition Specialist Relationship Specialty Start Date End Date Virginia Vieira APRN - BOB [address] [place] [address] PCP - General Family Medicine 08/31/24 documented as of this encounter
--- OUTSIDE RECORDS SUMMARY | 2025-05-07 11:50 | XMS_ITS | Encounter Summary ---
Author Organization [facility] Address [address] [place] [address] Care Team Providers Care Undercar Specialist Name Role Phone Virginia Vieira SWITCHBOARD INSPECTOR - SUPPLY CHAIN TECH Primary Care Provider Encounter Details Date Type Department Care Team (Late st Contact Info) Description 04/20/2025 Orders Only [facility] UROLOGY Part of [address] [place] [address] Provider, MD Diane Social History Tobacco Use Types Packs/Day Years Used Date Smoking Tobacco: Never Smokeless Tobacco: Never Alcohol Use Standard Drinks/Week Comments Yes 0 (1 standard drink = 0.6 oz pur e alcohol) 2-3 cans of beer per day [facility] Utilities Answer Date Recorded In the past 12 months has [employer], gas, oil, or water company threatened [...] any time in the past 12 m [facility], were you homeless or living in [...] Description 06/02/2025 4:15 PM EDT Procedure visit [facility] UROLOG[facility] Part of [address] [place] [phone] Yimi Ling MD [address] [facility], [address] [place] [address] cysto/ review renal US 09/02/2025 9:00 AM EDT Office Visit Shola Cyr [address] [place] [phone] Virginia Vieira APRN - BOB [address] [place] [address] welcome to medicare documented as of this encounter Procedures Procedure Name Priority Date/Time Associated Diagnosis Comments URINALYSIS Routine 04/12/2025 4:46 PM EDT CULTURE, URINE Routine 04/12/2025 4:45 PM EDT CBC WITH AUTO DIFFERENTIAL Routine 04/10/2025 4:48 PM EDT COMPREHENSIVE METABOLIC PANEL Routine 04/10/2025 4:[address] ABDOMEN PELVIS WO CONTRAST Routine 04/10/2025 2:37 PM EDT documented in this encounter Results * Urinalysis (04/12/2025 4:46 PM EDT) Urine Result [facility] Provider URINE ORDERABLES Final Re sult * Culture, Urine (04/12/2025 4:45 PM EDT) Urine URINE SPECIMEN / Unknown Result [facility] Provider MICROBIOLOGY - GENERAL OR DERABLES Final Result * CBC with Auto Differential (04/10/2025 4:48 PM EDT) Blood BLOOD SPECIMEN / Unknown Result [facility] Provider HEMATOLOGY ORDERABLES Fin al Result * Comprehensive Metabolic Panel (04/10/2025 4:40 PM EDT) Blood BLOOD SPECIMEN / Unknown Result [facility] Provider CHEMISTRY ORDERABLES Kim l Result * CT ABDOMEN PELVIS WO CONTRAST (04/10/2025 2:37 PM EDT) Anatomical Region Laterality Modality Abdomen, Pelvis, Hip Computed To mography Result [facility] Provider IMG CT ORDERABLES Final R esult documented in this encounter Visit Diagnoses Not on filedocumented in this encounter Additional Health Concerns Assessment Noted Time A fall risk assessment has been complete d for the patient 03/25/2025 8:57 AM EDT documented as of this encounter Care Teams Undercar Specialist Relationship Specialty Start Date End Date Virginia Vieira APRN - SUPPLY CHAIN TECH [address] [place] [address] PCP - General Family Medicine 08/31/24 documented as of this encounter
--- OUTSIDE RECORDS SUMMARY | 2025-05-07 11:50 | XMS_ITS | Clinical Summary ---
Author Organization [facility] Address [id number] [address] [place] [address] Care Team Providers Care Structural Designer Name Role Phone Unavailable Primary Care Provider Unavailabl e Allergies No known active allergies Medications tadalafil (CIALIS) 5 mg tabletIndication s:erectile dysfunction Take 1 tablet (5 mg total) by mouth daily as needed for erectile dysfunction. 10 tablet 3 8 Active methylPREDNISolo ne (MEDROL, JJ,) 4 mg tabletIndication s:Acute pain of right knee follow package directions 21 tablet 8 Active tamsulosin (FLOMAX) 0.4 mg capsuleIndicatio ns:Benign prostatic hyperplasia with weak urinary stream Take 1 capsule (0.4 mg total) by mouth nightly. 30 capsule 1 8 Active lisinopril (PRINIVIL,ZESTRI L) 40 mg tablet TAKE 1 TABLET DAILY 90 tablet 1 9 Active meloxicam (MOBIC) 15 mg tablet TAKE 1 TABLET DAILY 30 tablet 9 Active amLODIPine (NORVASC) 5 mg tablet TAKE 1 TABLET DAILY 30 tablet 9 Active Active Problems Problem Noted Date Diagnosed Date Other male erectile dysfunction 07/30/2018 Benign prostatic hyperplasia with weak urinary s tream 07/30/2018 Acute pain of right knee 07/30/2018 Family History Medical History Relation Name Comments Cancer Father No Known Problems Mother Relation Name Status Comments Father Mother Social History Tobacco Use Types Packs/Day Years Used Date Smoking Tobacco: Never Smokeless Tobacco: Never Tobacco Cessation:Counseling Given: Yes Alcohol Use Standard Drinks/Week Comments Yes 0 (1 standard drink = 0.6 oz pur e alcohol) daily PHQ-2 Answer Date Recorded Total Score 0 07/30/2018 Childcare Answer Date Recorded Childcare Unknown 05/05/2019 Employment Answer Date Recorded Employment Unknown 05/05/2019 Purpose - Life Answer Date Recorded Purpose and direction in life Unknown Sex and Gender Information Value Date Recorded Sex Assigned at Not on file Legal Sex Male 11:56 AM EDT Gender Identity Not on file Sexual Orientation Not on file Last Filed Vital Signs Vital Sign Reading Time Taken Comments Blood Pressure 118/78 07/30/2018 10:12 AM EDT Pulse 68 07/30/2018 10:12 AM EDT Temperature - - Respiratory Rate 16 07/30/2018 10:12 AM EDT Oxygen Saturation 96% 07/30/2018 10:12 AM EDT Inhaled Oxygen Concentration - - Weight 96.2 kg (212 lb) 07/30/2018 10:12 AM EDT Height 180.3 cm (5' 11 ) 07/30/2018 10:12 AM EDT Body Mass Index 29.57 07/30/2018 10:12 AM EDT Plan of Treatment Health Maintenance Due Date Last Done Comments Depression Screening 1972 Tobacco Screening 1972 Adult BMI Screening 1978 DTaP,Tdap and Td Vaccines (1 - Tdap) 1979 Zoster (Shingles) Vaccine (1 of 2) 2010 Fall Risk Screening 2025 Influenza Vaccine 07/25/2025 Medical Devices Not on file Insurance
--- OUTSIDE RECORDS SUMMARY | 2025-05-07 11:50 | XMS_ITS | Encounter Summary ---
Author Organization [facility] Address [address] [place] [address] Care Team Providers Care Hob Grinder Name Role Phone Unavailable Primary Care Provider Unavailabl e Reason for Visit * Reason Comments Med Refill Encounter Details Date Type Department Care Team (Late st Contact Info) Description 06/21/2024 Refill [facility] [address] [place] [phone] Henrique Thao MD [address] [place] [address] Essential (primary) hypertension ; Essential hypertension Social History Tobacco Use Types Packs/Day Years Used Date Smoking Tobacco: Never Assessed Sex and Gender Information Value Date Recorded Sex Assigned at Not on file Legal Sex Male 8:35 PM EDT Gender Identity Not on file Sexual Orientation Not on file documented as of this encounter Plan of Treatment Not on file documented as of this encounter Visit Diagnoses Diagnosis Essential (primary) hypertension Unspecified essential hypertension Essential hypertension Unspecified essential hypertension documented in this encounter
--- OUTSIDE RECORDS SUMMARY | 2025-05-07 11:50 | XMS_ITS | Clinical Summary ---
Author Organization [facility] Address [address] [place] [address] Care Team Providers Care Card Decorator Name Role Phone Unavailable Primary Care Provider Unavailabl e Social History Tobacco Use Types Packs/Day Years Used Date Smoking Tobacco: Never Assessed Sex and Gender Information Value Date Recorded Sex Assigned at Not on file Legal Sex Male 8:35 PM EDT Gender Identity Not on file Sexual Orientation Not on file Last Filed Vital Signs Vital Sign Reading Time Taken Comments Blood Pressure 128/76 04/24/2021 12:00 PM EDT Pulse - - Temperature - - Respiratory Rate - - Oxygen Saturation - - Inhaled Oxygen Concentration - - Weight 93.4 kg (206 lb) 04/24/2021 12:00 PM EDT Height 182.4 cm (5' 11.8 ) 04/24/2021 12:00 PM E DT Body Mass Index 28.09 04/24/2021 12:00 PM EDT Plan of Treatment Not on file
--- OUTSIDE RECORDS SUMMARY | 2025-05-07 11:50 | XMS_ITS | Encounter Summary ---
Author Organization [facility] Address [address] [place] [address] Care Team Providers Care Insurance Claims Analyst Name Role Phone Virginia Vieira MICRO LAB ANALYST - CLOTHING WORKER Primary Care Provider Encounter Details Date Type Department Care Team (Late st Contact Info) Description 04/22/2025 Abstract CShani Easton MD [facility] [address] [place] [address] Jan Easton MD [address] [place] [address] Social History Tobacco Use Types Packs/Day Years Used Date Smoking Tobacco: Never Smokeless Tobacco: Never Alcohol Use Standard Drinks/Week Comments Yes 0 (1 standard drink = 0.6 oz pur e alcohol) 2-3 cans of beer per day [facility] Utilities Answer Date Recorded In the past 12 months has [employer], gas, oil, or water [employer] threatened to shut off services in your [...] any time in the past 12 m [facility], were you homeless or living in a halfway (including now)? No 01/13/2025 Food Insecurity Answer [...] Description 06/02/2025 4:15 PM EDT Procedure visit [facility] UROLOGY Part of [address] [place] [address] Yimi Ling MD [address] [facility], [address] [place] [address] cysto/ review renal US 09/02/2025 9:00 AM EDT Office Visit [facility] [address] [place] [address] Virginia Vieira, THUAN - CLOTHING WORKER [address] [place] [address] welcome to medicare documented as of this encounter Visit Diagnoses Not on filedocumented in this encounter Additional Health Concerns Assessment Noted Time A fall risk assessment has been complete d for the patient 03/25/2025 8:57 AM EDT documented as of this encounter Care Teams Insurance Claims Analyst Relationship Specialty Start Date End Date Virginia Viiera APRN - BOB [address] [place] [address] PCP - General Family Medicine 08/31/24 documented as of this encounter
--- OUTSIDE RECORDS SUMMARY | 2025-05-07 11:50 | XMS_ITS | Encounter Summary ---
Author Organization [facility] [employer] [facility] Address [id number] [address] [place] [address] Care Team Providers Care Gm Name Role Phone Unavailable Primary Care Provider Unavailabl e Reason for Visit * Reason Comments Med Refill Encounter Details Date Type Department Care Team (Late st Contact Info) Description 09/18/2019 Refill [facility] [address] [facility] [place] [phone] Anny Arenas DO [address] [facility] [place] [phone] Social History Tobacco Use Types Packs/Day Years [...]
--- OUTSIDE RECORDS SUMMARY | 2025-05-07 11:50 | XMS_ITS | Encounter Summary ---
Author Organization [facility] Address [address] [place] [address] Care Team Providers Care Burlap Bag Sewer Name Role Phone Virginia Vieira THUAN - BOB Primary Care Provider Reason for Visit * Reason Onset Date Comments Results 05/04/2025 Encounter Details Date Type Department Care Team (Late st Contact Info) Description 05/04/2025 Telephone [facility] UROLOGY Part of [address] [place] [phone] Milady Marquez APRN - PREPARATION DEPARTMENT SUPERVISOR [address] [place] [address] [address] [place] [address] Results (/) Social History Tobacco Use Types Packs/Day Years Used Date Smoking Tobacco: Never Smokeless Tobacco: Never Alcohol Use Standard Drinks/Week Comments Yes 0 (1 standard drink = 0.6 oz pur e alcohol) 2-3 cans of beer per day [facility] Utilities Answer Date Recorded In the past 12 months has [employer], gas, oil, or water company threatened [...] No 01/13/2025 Housing Stability Vital Sign Answer Lkue e Recorded In the last 12 months, was t here a time when you were not able to pay the mortgage or rent on time? No 01/13/2025 In the past 12 months, how m any times have you moved where you were living? 0 01/13/2025 At any time in the past 12 m [facility], were you homeless or living in [...] Description 06/02/2025 4:15 PM EDT Procedure visit [facility] UROLOGY Part of [address] [place] [address] Yimi Ling MD [address] [place] [address], [address] [place] [address] cysto/ review renal US 09/02/2025 9:00 AM EDT Office Visit Shola Easton MD [address] [address] Virginia Vieira APRN - CNP [address] [place] [address] welcome to medicare documented as of this encounter Visit Diagnoses Not on filedocumented in this encounter Additional Health Concerns Assessment Noted Time A fall risk assessment has been complete d for the patient 03/25/2025 8:57 AM EDT documented as of this encounter Care Teams Burlap Bag Sewer Relationship Specialty Start Date End Date Virginia Vieira APRN - CNP [address] [place] [address] PCP - General Family Medicine 08/31/24 documented as of this encounter
--- OUTSIDE RECORDS SUMMARY | 2025-05-07 11:50 | XMS_ITS | Clinical Summary ---
[facility] Organization [facility] Address [address] [place] [address] Care Team Providers Care [place]. Commissioner Name Role Phone Virginia Vieira TECHNICAL ASSISTANT - DESIGN TECHNOLOGY TEACHER Primary Care Provider Allergies No known active allergies Medications lisinopril (PRINIVIL;ZESTRI L) 5 MG tabletIndication s:Hypertension, unspecified type Take 1 tablet by mouth daily 90 tablet 3 5 Active tamsulosin (FLOMAX) 0.4 MG capsule Take 1 capsule by mouth daily Active cefdinir (OMNICEF) 300 MG capsule Take 2 capsules by mouth daily Active sulfamethoxazole -trimethoprim (BACTRIM DS;SEPTRA DS) 800-160 MG per tablet Take 1 tablet by mouth 2 times daily for 10 days 20 tablet 5 04/18/20 25 Active Problems Problem Noted Date Diagnosed Date Hydronephrosis 05/04/2025 Gross hematuria 05/04/2025 BPH with obstruction/lower urinary tract symptom s 05/04/2025 Bladder wall thickening 05/04/2025 Encounters Date Type Department Care Team Description 05/06/2025 Abstract [facility] [address] [place] [phone] Jan Easton MD 05/05/2025 11:00 AM EDT Hospital Encounter [facility] Ultrasound [address] [place] [address] Yimi Ling MD Hydronephrosis, unspecified hydronephrosis type 05/04/2025 8:00 AM EDT Office Visit [facility] Part of [address] [place] [phone] Yimi Ling MD Hydronephrosis, unspecified hydronephrosis type (Primary Dx); Gross hematuria; BPH with obstruction/lower urinary tract symptoms; Bladder wall thickening 05/04/2025 Telephone [facility] Part of [address] [place] [phone] Milady Marquez, TECHNICAL ASSISTANT - DESIGN TECHNOLOGY TEACHER Results (/) 04/29/2025 Results Follow-Up [facility] [address] [place] [address] Virginia Vieira APRN - BOB 04/22/2025 Abstract [facility] [address] [place] [address] Jan Easton MD 04/20/2025 1:00 PM EDT Office Visit [facility] [address] [place] [address] Virginia Vieira TECHNICAL ASSISTANT - DESIGN TECHNOLOGY TEACHER URBANO (acute kidney injury) (Primary Dx); Acute cystitis with hematuria; Hydronephrosis, unspecified hydronephrosis type; Low hemoglobin; Low platelet count 04/20/2025 Telephone [facility] Part of [address] [place] [address] Yimi Ling MD 04/20/2025 Orders Only [facility] Part of [address] [place] [address] Diane Au MD 04/14/2025 Abstract [facility] [address] [place] [address] Jan Easton MD 04/14/2025 [facility] [address] [place] [address] Jan Easton MD 04/14/2025 Abstract [facility] [address] [place] [phone] Jan Easton MD 04/14/2025 Abstract [facility] [address] [facility] [place] [phone] Jan Easton MD 04/13/2025 Abstract [facility] [address] [facility] [place] [phone] Jan Easton MD 04/08/2025 Telephone [facility] [address] [place] [phone] Keke Alvarado Results (UA and culture) 04/07/2025 9:54 AM EDT - 04/07/2025 11:59 PM EDT [place] [phone] Dysuria; Urinary frequency Discharge Disposition: Home or Self Care 04/06/2025 Orders Only [facility] [address] [place] [phone] Virginia Vieira APRN - CNP Dysuria (Primary Dx); Urinary frequency 04/04/2025 Refill [facility] [address] [place] [phone] Petra Sanchez APRN - BOB Medication Refill 03/29/2025 Abstract [facility] [address] [place] [phone] Jan Easton MD 03/28/2025 Results Follow-Up [facility] [address] [place] [phone] Virginia Vieira APRN - DESIGN TECHNOLOGY TEACHER 03/25/2025 9:00 AM EDT Lab [facility] [address] [place] [phone] Virginia Vieira APRN - DESIGN TECHNOLOGY TEACHER 03/01/2025 9:00 AM EDT Office Visit [facility] [address] [place] [address] Virginia Vieira APRN - CNP Hypertension, unspecified type (Primary Dx); Encounter for screening prostate specific antigen (PSA) measurement; Colon cancer screening 02/23/2025 Results Follow-Up [facility] [address] [place] [address] Virginia Vieira APRN - CNP 02/22/2025 8:07 AM EDT - 02/22/2025 11:59 PM EDT Hospital Encounter [facility] [address] [place] [address] Diabetes mellitus screening; Hypertension, unspecified type Discharge Disposition: Home or Self Care from Last 3 Months Immunizations Immunization Administration Dates Next Due TDaP, ADACEL (age 10y-64y), BOOSTRIX (age 10y+), IM, 0.5mL 06/15/2020 Family History Medical History Relation Name Comments Cancer Father Heart Disease Mother Relation Name Status Comments Father Mother Social History Tobacco Use Types Packs/Day Years Used Date Smoking Tobacco: Never Smokeless Tobacco: Never Tobacco Cessation:Counseling Given: Not Answered Alcohol Use Standard Drinks/Week Comments Yes 0 (1 standard drink = 0.6 oz pur e alcohol) 2-3 cans of beer per day [facility] Utilities Answer Date Recorded In the past 12 months has [employer], gas, oil, or water [employer] threatened to shut off services in your [...] any time in the past 12 m [facility], were you homeless or living in [...] EDT Respiratory Rate - - Oxygen Saturation 96% 04/20/2025 1:01 PM EDT Inhaled Oxygen Concentration - - Weight 83.5 kg (184 lb) 05/04/2025 7:49 AM EDT Height 182.9 cm (6') 04/20/2025 1:01 PM EDT Body Mass Index 24.95 04/20/2025 1:01 PM EDT Plan of Treatment Upcoming Encounters Date Type Department Care Team (Late st Contact Info) Description 06/02/2025 4:15 PM EDT Procedure visit [facility] Part of [address] [place] [address] Yimi Ling MD [address] [facility], [address] [place] [address] cysto/ review renal US 09/02/2025 9:00 AM EDT Office Visit [facility] [address] [place] [phone] Virginia Vieira APRN - DESIGN TECHNOLOGY TEACHER [address] [place] [address] welcome to medicare Health Maintenance Due Date Last Done Comments HIV screen 1975 Hepatitis C screen 1978 Colonoscopy 2005 FIT/FOBT: Average risk 2005 Sigmoidoscopy/CT colonography 2005 Shingles vaccine (1 of 2) 2010 COVID-19 Vaccine (2023-2 5 season) 2024 Annual Wellness Visit (Medicare) 02/22/2025 Flu vaccine (Season Ended) 2025 P ostponed from 06/24/2025 (Patient Refused) Depression Screen 01/13/2026 01/13/2025, 01/13/2025 Colorectal Cancer Screen 03/22/2028 Fecal-DNA (Cologuard): Average risk 03/22/2028 03/22/2025, 06/26/2020 Lipids 02/22/2030 02/22/2025 DTaP/Tdap/Td vaccine (2 - Td or Tdap) 06/15/2030 06/15/2020 Respiratory Syncytial Virus (RSV) or age 60 yrs+ (1 - 1-dose 75+ series) 2035 Diabetes screen Discontinued 02/22/2025 Pneumococcal 0-49 years Vaccine Discontinued 04/11/2025 Pneumococcal 50+ years Vaccine Completed 04/11/2025 Hepatitis A vaccine Aged Out No longe r eligible based on patient's age to complete this topic Hepatitis B vaccine Aged Out No longe r eligible based on patient's age to complete this topic Hib vaccine Aged Out No longer eligi ble based on patient's age to complete this topic Meningococcal (ACWY) vaccine Aged Out No longer eligible based on patient's age to complete this topic Meningococcal B vaccine Aged Out No l onger eligible based on patient's age to complete this topic Polio vaccine Aged Out No longer elig ible based on patient's age to complete this topic Procedures Procedure Name Priority Date/Time Associated Diagnosis Comments US RENAL LIMITED Routine 05/05/2025 11:1 3 AM EDT Hydronephrosis, unspecified hydronephrosis type URINALYSIS Routine 04/12/2025 4:46 PM EDT CULTURE, URINE Routine 04/12/2025 4:45 PM EDT CBC WITH AUTO DIFFERENTIAL Routine 04/10/2025 4:48 PM EDT COMPREHENSIVE METABOLIC PANEL Routine 04/10/2025 4:[address] ABDOMEN PELVIS WO CONTRAST Routine 04/10/2025 2:37 PM EDT CULTURE, URINE Routine 04/07/2025 10:20 AM EDT Dysuria Urinary frequency URINALYSIS WITH MICROSCOPIC Routine 04/07/2025 10:19 AM EDT Dysuria Urinary frequency FECAL DNA COLORECTAL CANCER SCREENING (COLOGUARD) Routine 03/22/2025 3:59 AM EDT Colon cancer screening CBC Routine 02/22/2025 8:14 AM EDT Hypertension, unspecified type COMPREHENSIVE METABOLIC PANEL Routine 02/22/2025 8:14 AM EDT Hypertension, unspecified type LIPID PANEL Routine 02/22/2025 8:14 AM EDT Hypertension, unspecified type HEMOGLOBIN A1C Routine 02/22/2025 8:14 AM EDT Diabetes mellitus screening from Last 3 Months Results * US RENAL LIMITED (05/05/2025 11:13 [...] and large postvoid residual. Yimi Ling MD IMG US ORDERABLES Final Resu lt * Urinalysis (04/12/2025 4:46 PM EDT) Urine Historical Provider URINE ORDERABLES Final Re sult * Culture, Urine (04/12/2025 4:45 PM EDT) Only the most recent of2 resultswithin the time period is included. Urine URINE SPECIMEN / Unknown Historical Provider MICROBIOLOGY - GENERAL OR DERABLES Final Result * CBC with Auto Differential (04/10/2025 4:48 PM EDT) Blood BLOOD SPECIMEN / Unknown Historical Provider HEMATOLOGY ORDERABLES Fin al Result * Comprehensive Metabolic Panel (04/10/2025 4:40 PM EDT) Only the most recent of2 resultswithin the time period is included. Blood BLOOD SPECIMEN / Unknown Historical Provider CHEMISTRY ORDERABLES Kim l Result * CT ABDOMEN PELVIS WO CONTRAST (04/10/2025 2:37 PM EDT) Anatomical Region Laterality Modality Abdomen, Pelvis, Hip Computed To mography Historical Provider IMG CT ORDERABLES Final R esult * (ABNORMAL) Urinalysis with Microscopic (04/07/2025 10:19 AM EDT) Color, UA Yellow Yellow 04/07/2025 10:19 AM [facility] Turbidity UA Cloudy(A) Clear 04/07/2025 10:19 AM [facility] Glucose, Ur NEGATIVE NEGATIVE mg/dL 04/07/2025 10:19 AM [facility] Bilirubin, Urine NEGATIVE NEGATIVE 04/07/2025 10:19 AM [facility] Ketones, Urine NEGATIVE NEGATIVE mg/dL 04/07/2025 10:19 AM [facility] Specific [place], UA 1.020 1.010 - 1.020 04/07/2025 10:19 AM [facility] Urine Hgb 2+(A) NEGATIVE 04/07/2025 10:19 AM [facility] pH, Urine 8.0 5.0 - 9.0 04/07/2025 10:19 AM [facility] Protein, UA 2+(A) NEGATIVE mg/dL 04/07/2025 10:19 AM [facility] Urobilinogen, Urine Normal 0.0 - 1.0 EU/dL 04/07/2025 10:19 AM [facility] Nitrite, Urine POSITIVE(A) NEGATIVE 10:19 AM EDT [facility] Leukocyte Esterase, Urine MODERATE(A) NEGATIVE 04/07/2025 10:19 AM EDT [facility] WBC, UA 50 TO 100 0 - 5 /HPF 04/07/2025 10:19 AM EDT [facility] RBC, UA 5 TO 10 0 - 2 /HPF 04/07/2025 10:19 AM EDT [facility] Epithelial Cells, UA 0 TO 2 0 - 5 /HPF 04/07/2025 10:19 AM EDT [facility] Renal Epithelial, UA 2 TO 5 0 /HPF 04/07/2025 10:19 AM EDT [facility] Bacteria, UA 2+(A) None 04/07/2025 10:19 AM EDT [facility] Urine URINE SPECIMEN / Unknown 04/07/2025 10:19 AM EDT 04/07/2025 10:20 AM EDT Virginia Vieira TECHNICAL ASSISTANT - DESIGN TECHNOLOGY TEACHER URINE ORDERABLES Final Result [facility] [address] [phone] * Fecal DNA Colorectal cancer screening (Cologuard) (03/22/2025 3:59 AM EDT) FIT-DNA (Cologuard) Negative Negative 03/28/2025 7:17 AM EDT [employer] (CLIA #:[id number]) Comment: The Cologuard Plus (TM) test was performed on this specimen. NEGATIVE TEST RESULT. A negative (normal) Cologuard Plus result means the patient has a [id number] chance of having colorectal cancer (CRC) or advanced precancer (polyps or lesions that could become cancer). Negative is the normal value (reference range) for this assay. Guidelines recommend screening again 3 years after a negative Cologuard Plus result. Continued screening increases the chance of finding CRC early or preventing it entirely. A clinical validation study showed the Cologuard Plus test is effective at ruling out CRC. Out of every 10,000 patients testing negative, approximately 2 will be falsely reassured that they do not have CRC, and out of every 100 patients testing negative, approximately 7 patients will be falsely reassured they do not have advanced precancer. TEST DESCRIPTION: The Cologuard Plus test is a multi-target stool DNA (mt-sDNA) test that analyzes DNA and hemoglobin biomarkers in stool. It uses a proprietary algorithm to qualitatively detect CRC and advanced precancer. It is FDA-approved and indicated for use in adults 45 years or older at average risk for CRC. A positive (abnormal) result should be followed by a colonoscopy. Patients with a negative (normal) result should screen again in 3 years. False positive and false negative results may occur. The USPSTF recommends the Cologuard test as a CRC screening option. Their modeling estimates that screening with the test every 3 years from ages 45-85 could prevent up to 73% of CRC and avoid up to 85% of CRC deaths. A 18,911-patient clinical trial found the Cologuard Plus test effectively detects CRC and precancer. The study found the test was 95% sensitive for CRC, 43% sensitive for advanced precancer, and had a 91% specificity (Cologuard Plus Clinician Brochure. [employer]. SARAH Guardado.). Visit [email or web address]/[email or web address]-[email or web address] for more test information, references, warnings, and precautions. Feces (substance) STOOL SPECIMEN / Unknown 03/22/2025 3:59 AM EDT 2025 11:11 AM EDT us Virginia Vieira TECHNICAL ASSISTANT - DESIGN TECHNOLOGY TEACHER MICROBIOLOGY - GENERAL ORDERABLES Final Result [employer] (CLIA #:[id number]) [address] [place] [address], [facility] [phone] * CBC (02/22/2025 8:14 AM EDT) WBC 5.2 3.5 - 11.3 k/uL 02/22/2025 8:14 AM EDT [facility] RBC 4.99 4.21 - 5.77 m/uL 02/22/2025 8:14 AM EDT [facility] Hemoglobin 14.6 13.0 - 17.0 g/dL 02/22/2025 8:14 AM T [facility] Hematocrit 42.9 40.7 - 50.3 % 02/22/2025 8:14 AM EDT [facility] MCV 86.0 82.6 - 102.9 fL 02/22/2025 8:14 AM EDT [facility] MCH 29.3 25.2 - 33.5 pg 02/22/2025 8:14 AM EDT [facility] MCHC 34.0 28.4 - 34.8 g/dL 02/22/2025 8:14 AM [facility] RDW 13.0 11.8 - 14.4 % 02/22/2025 8:14 AM [facility] Platelets 146 138 - 453 k/uL 02/22/2025 8:14 AM [facility] MPV 9.6 8.1 - 13.5 fL 02/22/2025 8:14 AM [facility] NRBC Automated 0.0 0.0 per 100 WBC 02/22/2025 8:14 AM [facility] Blood BLOOD SPECIMEN / Unknown 02/22/2025 8:14 AM EDT 02/22/2025 8:15 AM EDT us Virginia Vieira TECHNICAL ASSISTANT - DESIGN TECHNOLOGY TEACHER HEMATOLOGY ORDERABLES Final Result [facility] [address] [phone] * Hemoglobin A1C (02/22/2025 8:14 AM EDT) Hemoglobin A1C 4.8 4.0 - 6.0 % 02/22/2025 8:14 AM EDT [employer] Estimated Avg Glucose 91 mg/dL 02/22/2025 8:14 AM EDT [employer] Comment: The ADA and AACC recommend providing the estimated average glucose result to permit better patient understanding of their HBA1c result. Blood BLOOD SPECIMEN / Unknown 02/22/2025 8:14 AM EDT 02/22/2025 8:15 AM EDT Virginia Vieira TECHNICAL ASSISTANT - DESIGN TECHNOLOGY TEACHER CHEMISTRY ORDERABLES F inal Result Performing Organization Address City/[facility] Co de Phone Number [facility] [address] [place] [address], [facility] [phone] [facility] [address] [place], [place] [address] [phone] * Lipid Panel (02/22/2025 8:14 AM EDT) Cholesterol, Total 164 0 - 199 mg/dL 02/22/2025 8:14 AM EDT [employer] Comment: Cholesterol Guidelines: <200 Desirable 200-240 Borderline >240 Undesirable HDL 59 >40 mg/dL 02/22/2025 8:14 AM EDT [employer] Comment: HDL Guidelines: <40 Undesirable 40-59 Borderline >59 Desirable LDL Cholesterol 92 0 - 100 mg/dL 02/22/2025 8:14 AM [employer] Comment: LDL Guidelines: <100 Desirable 100-129 Near to/above Desirable 130-159 Borderline >159 Undesirable Direct (measured) LDL and calculated LDL are not interchangeable tests. Chol/HDL Ratio 2.8 02/22/2025 8:14 AM EDT [employer] Triglycerides 63 <150 mg/dL 02/22/2025 8:14 AM EDT [employer] Comment: Triglyceride Guidelines: <150 Desirable 150-199 Borderline 200-499 High >499 Very high Based on AHA Guidelines for fasting triglyceride, August 2012. VLDL 13 1 - 30 mg/dL 02/22/2025 8:14 AM EDT [employer] Blood BLOOD SPECIMEN / Unknown 02/22/2025 8:14 AM EDT 02/22/2025 8:15 AM EDT Virginia Vieira TECHNICAL ASSISTANT - DESIGN TECHNOLOGY TEACHER CHEMISTRY ORDERABLES F inal Result [facility] [address] [place] [address], [facility] [phone] [facility] [address] [place] [address], [facility] [phone] from Last 3 Months Insurance MEDICARE [employer] SENIOR MEDICARE SUPP MEDICARE AET[employer] SENIOR MEDICARE SUPP Care Teams [place]. Commissioner Relationship Specialty Start Date End Date Virginia Vieira APRN - BOB [address] [place] [phone] PCP - General Family Medicine 08/31/24
[2025-05-07] MEDS: ASPIRIN 81 MG TAB.CHEW 324 MG PO (12:47)
[2025-05-07 12:59] LABS: Bilirubin Urine NEGATIVE (NEGATIVE); Blood Urine TRACE-I (NEGATIVE); Clarity Urine CLEAR (CLEAR); Color Urine LT. YELLOW (YELLOW); Glucose Urine UA NEGATIVE (NEGATIVE); Ketones Urine NEGATIVE (NEGATIVE); Leukocyte Esterase Urine SMALL (NEGATIVE); Nitrite Urine NEGATIVE (NEGATIVE); Protein Urine NEGATIVE (NEG/TRACE); Urine Microscopic Indicated YES; Urobilinogen Urine 0.2 EU/dL (0.2-1.0)
[2025-05-07 13:04] LABS: Bacteria Urine SMALL #/HPF (NONE SEEN); Mucus Urine NONE SEEN (NONE SEEN); RBC Urine 0-2 #/HPF (0-2); Squamous Epithelial Cell Urine RARE #/LPF (NONE/RARE)
[2025-05-07 13:05] LABS: Cast Seen? NONE SEEN #/LPF (NONE SEEN); Crystals Seen? None Seen #/HPF (None Seen); Urine Culture Indicated YES-FRMC
[2025-05-07 13:14] LABS: Troponin I High Sensitivity 25.6 pg/mL (4.0-76.1)
--- NOTE | 2025-05-07 15:02 | PM.IMHP1 ---
Internal Medicine - H&P: HPI History of Present Illness Chief complaint: CHEST PAIN Narrative: This is a 65-year-old man who came to the emergency room today at [facility] after experiencing substernal chest pain with radiation to his left jaw after voiding urine. He does have known prostate hypertrophy. He was hospitalized here about a month ago with obstructive uropathy and a Colvin catheter had to be placed. After couple days stay in hospital on IV fluids and holding his lisinopril his creatinine improved nicely. After that visit the patient has gotten established with a urologist in [place]. He has been started on Flomax. In less than a month he will go back to the urology office and his reports that the patient will get a cystoscopy. As for today's episode the patient says that he was straining very hard to try and pass urine. He felt a sensation like he might pass out. He tried to crouch down. When he stood up quickly after doing that he felt the substernal chest pain and pain in his jaw. As he finished his work in the bathroom he noticed sensation of tachycardia. He could very acutely and keenly feel the sensation of rapid heart rate. He and his went out to drive the car and do some errands. And half-way through that car trip he told his that he was not feeling well and so they redirected their course and came to the emergency room. In the ER he was treated with a 20 mg bolus of IV Cardizem. They were just about ready to start the Cardizem drip when he has atrial fibrillation at 150 bpm converted to normal sinus rhythm. His first troponin was 8. A follow-up troponin was 25. So the ER was in the phone communication with cardiology with Dr. Sarahi Youssef and it was recommended that the patient be observed overnight. The patient has no known history of cardiac issues. He can normally do daily's of activity living and get mild exertion without any chest pain or shortness of breath or any angina equivalents. He does think that he has had a couple bouts of rapid heart rate before that only lasted for a couple minutes. This happened about once every few months. When I see the patient emergency room he is now free of any symptoms. No chest pain. No palpitations. No shortness of breath. He is hungry and eager to eat. He is accompanied by his and his daughter. Review of Systems ROS Narrative A 10 point review of systems is undertaken and is negative except as mentioned elsewhere in this documentation. [facility] Medical History (Updated 05/07/25 @ 15:10 by NOEMI MODI) Hydronephrosis due to obstruction of bladder ?N13.30 - Unspecified hydronephrosis (ICD-10) ?N32.0 - Bladder-neck obstruction (ICD-10) Urinary retention due to benign prostatic hyperplasia ?N40.1 - Benign prostatic hyperplasia with lower urinary tract symptoms (ICD-10) ?R33.8 - Other retention of urine (ICD-10) URBANO (acute kidney injury) ?N17.9 - Acute kidney failure, unspecified (ICD-10) Acute UTI ?N39.0 - Urinary tract infection, site not specified (ICD-10) Acute urinary retention ?R33.8 - Other retention of urine (ICD-10) HTN (hypertension) ?I10 - Essential (primary) hypertension (ICD-10) Borderline high blood pressure ?R03.0 - Elevated blood-pressure reading, without diagnosis of hypertension (ICD-10) Surgical History (Updated 05/07/25 @ 15:08 by NOEMI MODI) History of surgery on arm ?Z98.890 - Other specified postprocedural states (ICD-10) History of ankle surgery ?Z98.890 - Other specified postprocedural states (ICD-10) Social History Smoking status: Never smoker Non-prescribed substance use: denies use Previous occupational history: retired Known occupational exposures/hazards: No Highest level of school completed/degree received: high school graduate Little interest or pleasure in doing things: not at all Feeling down, depressed, or hopeless: not at all Meds Home Medications and Allergies Home Medications ?Medication ?Instructions ?Recorded ?Confirmed ?Type lisinopril 5 mg tablet 5 mg PO DAILY 04/10/25 05/07/25 History tamsulosin 0.4 mg capsule 0.4 mg PO QD #30 caps 04/12/25 05/07/25 Rx Allergies Allergy/AdvReac Type Severity Reaction Status Date / Time No Known Drug Allergies Allergy Verified 04/10/25 06:07 Exam Narrative Exam Narrative: General: Awake. Alert. Comfortable. monitoring coordinator: Nice normal sinus rhythm without any ectopy at 75 bpm. Skin: Visible skin is warm and dry and well-perfused. No rashes. Eyes: EOMI. Conjunctiva sclera clear. Neurologic: Recent remote memory fully intact. Moves both arms and both legs well without any neurologic deficits. GI:, Soft, nontender, with normal bowel sounds to auscultation. Pulmonary: Clear to auscultation throughout. No wheezing. No rhonchi. No crackles. Cardiac: Auscultation's are sounds normal. No rubs or gallops to auscultation. Lower extremities: Does have +1 pitting edema in both ankles. Calves are nontender and nonswollen bilaterally. Neck: No JVD. No thyromegaly. Constitutional Vital Signs, click to edit/add: Last Vital Signs Temp 98.2 F 05/07/25 10:51 Pulse 69 05/07/25 14:10 Resp 16 05/07/25 14:10 BP 133/77 05/07/25 14:00 Pulse Ox 99 05/07/25 14:10 O2 Del Method Room Air 05/07/25 10:51 Internal Medicine - H&P: Reslt Labs Labs: Short CBC 05/07/25 Range/Units 11:05 WBC 8.3 (4.0-11.0) 10^3/uL Hgb 12.6 L (14.0-18.0) g/dL Hct 37.2 L (42.0-54.0) % Plt Count 143 L (150-450) 10^3/uL BMP 05/07/25 11:05 Sodium 141 Potassium 4.2 Chloride 104 Carbon Dioxide 24.2 BUN 31.0 H Creatinine 1.49 H Glucose 101 Calcium 9.3 Liver Function 05/07/25 Range/Units 11:05 Total Bilirubin 0.8 (0.2-1.0) mg/dL AST 19 (15-37) U/L ALT 22 (16-63) U/L Alkaline Phosphatase 86 (46-116) U/L Albumin 3.8 (3.4-5.0) g/dL Urine 05/07/25 Range/Units 12:40 Urine Color Lt. yellow (YELLOW) Urine Clarity Clear (CLEAR) Urine pH 6.0 (5.0-9.0) Ur Specific [place] 1.010 (1.005-1.025) Urine Protein Negative (NEG/TRACE) mg/dL Urine Glucose (UA) Negative (NEGATIVE) mg/dL ECG Attestation: I personally reviewed and interpreted this ECG as follows: ECG interpretation date: 05/07/25 Interpretation: The twelve-lead in the ER shows A-fib with RVR at [address] or T wave changes. Assessment and Plan Assessment and Plan (1) New onset a-fib: (2) Chest pain: Qualifiers: Chest pain type: other chest pain Qualified Code(s): R07.89 - Other chest pain (3) Jaw pain: (4) Atrial fibrillation with RVR: (5) Troponin level elevated: (6) BPH (benign prostatic hyperplasia): Qualifiers: Lower urinary tract symptom presence: symptoms present Lower urinary tract symptom detail: incomplete bladder emptying Qualified Code(s): N40.1 - Benign prostatic hyperplasia with lower urinary tract symptoms; R39.14 - Feeling of incomplete bladder emptying Plan Assessment: Episode of atrial fibrillation with rapid ventricular response. Episode of chest pain and jaw pain which is likely related to the tachycardia. Mild increase in troponin from 8 up to 25, likely due to strain from the tachycardia. Prostate hypertrophy. I do think this led to an increased vasovagal tone for this patient precipitating the first of atrial fibrillation with rapid ventricular response. Plan: Placement into the hospital in observation status. Re-cycle troponin this afternoon, at bedtime, and in the morning. 12 lead EKG now, and in the morning. Continuous telemetry monitoring. The patient is instructed to tell the nursing staff immediately if he has any cardiac symptoms. Regular diet. The patient is encouraged to ambulate the hallways. I encouraged the patient and his to strictly adhere to the outpatient follow-up plan with his urologist in [place].
--- NOTE | 2025-05-07 15:44 | ECG_ITS ---
[facility] Test Date: 2025-05-07 Pat Name: MICHAEL CAMPBELL Department: Room: - Gender: Male Overlock Hemmer: : 1960 Requested By: Order Number: [id number] Reading MD: RAMONE GARZA M.D. Measurements Intervals [place] Rate: 74 P: 37 MI: 150 QRS: 50 QRSD: 74 T: 36 QT: 346 QTc: 374 Interpretive Statements 1100 Sinus rhythm 9110 normal ECG Compared to ECG 05/07/2025 10:55:29 Atrial fibrillation no longer present ST (T wave) deviation no longer present Electronically Signed On 05-08-2025 8:47:23 EDT by RAMONE GARZA M.D.
--- NOTE | 2025-05-07 16:31 | PC.NURSE ---
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 Please see orders for medication orders. Provider stated that he was locked out of his account and wasn't able to place orders and asked this RN to do so.
[2025-05-07 16:38] LABS: Troponin I High Sensitivity 239.3 pg/mL (4.0-76.1)
[2025-05-07] MEDS: TAMSULOSIN HCL 0.4 MG CAPSULE PO (17:17)
[2025-05-07] MEDS: ATORVASTATIN CALCIUM 40 MG TABLET PO (21:04)
[2025-05-07 21:35] LABS: Troponin I High Sensitivity 184.1 pg/mL (4.0-76.1)
[2025-05-08] VITALS (16 sets, daily range): BP systolic 136–144; BP diastolic 71–77; PULSE 61–92; TEMP 36.6; O2SAT 96–99
[2025-05-08 06:48] LABS: BUN Creatinine Ratio 21.7; Calcium 8.6 mg/dL (8.5-10.1); Carbon Dioxide 22.9 mmol/L (21.0-32.0); Chloride 105 mmol/L (98-107); Estimated GFR (African America >60 (>=60 mL/min/1.73m^2); Estimated GFR (Non-African Ame 52 (>=60 mL/min/1.73m^2); Glucose 107 mg/dL (74-106); Potassium 3.9 mmol/L (3.5-5.1); Sodium 139 mmol/L (136-145); Troponin I High Sensitivity 61.9 pg/mL (4.0-76.1)
--- NOTE | 2025-05-08 07:00 | ECG_ITS ---
[facility] Test Date: 2025-05-08 Pat Name: MICHAEL CAMPBELL Department: Room: [facility] Gender: Male Manager Studio: : 1960 Requested By: [id number] Order Number: [id number] Reading MD: RAMONE GARZA M.D. Measurements Intervals [place] Rate: 65 P: 44 FL: 148 QRS: 62 QRSD: 74 T: 47 QT: 390 QTc: 402 Interpretive Statements 1100 Sinus rhythm 9110 normal ECG Compared to ECG 05/07/2025 11:26:39 No significant changes Electronically Signed On 05-08-2025 8:52:24 EDT by RAMONE GARZA M.D.
[2025-05-08] MEDS: DILTIAZEM HCL 120 MG CAP.ER.24H PO (09:31)
[2025-05-08] MEDS: TAMSULOSIN HCL 0.4 MG CAPSULE PO (09:31)
[2025-05-08] MEDS: ASPIRIN 81 MG TABLET.DR PO (09:33)
--- OUTSIDE RECORDS SUMMARY | 2025-05-08 12:23 | XMS_ITS | Encounter Summary ---
[facility] Address [address] [place] [address] Care Team Providers Care Stave Saw Operator Name Role Phone Virginia Vieira APRN - BOB Primary Care Provider Encounter Details Date Type Department Care Team (Late st Contact Info) Description 04/29/2025 Results Follow-Up Shola Easton MD [facility] [address] [place] [phone] Virginia Vieira APRN - CNP [address] [place] [address] Social History Tobacco Use Types Packs/Day Years Used Date Smoking Tobacco: Never Smokeless Tobacco: Never Alcohol Use Standard Drinks/Week Comments Yes 0 (1 standard drink = 0.6 oz pur e alcohol) 2-3 cans of beer per day [facility] Utilities Answer Date Recorded In the past 12 months has [employer], gas, oil, or water [employer] threatened to shut off services in your [...] time in the past 12 m [facility], were you homeless or living in a usp (including now)? No 01/13/2025 Food Insecurity Answer [...] Description 06/02/2025 4:15 PM EDT Procedure visit [facility] Part of [address] [place] [phone] Yimi Ling MD [address] [place] [address], [address] [place] [address] cysto/ review renal US 09/02/2025 9:00 AM EDT Office Visit Shola Easton MD [facility] [address] [place] [phone] Virginia Vieira, THUAN - SENIOR SYSTEMS SOFTWARE ENGINEER [address] [place] [address] welcome to medicare documented as of this encounter Visit Diagnoses Not on filedocumented in this encounter Additional Health Concerns Assessment Noted Time A fall risk assessment has been complete d for the patient 03/25/2025 8:57 AM EDT documented as of this encounter Care Teams Stave Saw Operator Relationship Specialty Start Date End Date Virginia Vieira APRN - BOB [address] [place] [address] PCP - General Family Medicine 08/31/24 documented as of this encounter
--- OUTSIDE RECORDS SUMMARY | 2025-05-08 12:23 | XMS_ITS | Encounter Summary ---
Author Organization [facility] Address [address] [place] [address] Care Team Providers Care Director Safety Council Name Role Phone Virginia Vieira CENTRAL [employer] TECH - DISPATCH ASSOCIATE Primary Care Provider Encounter Details Date Type Department Care Team (Late st Contact Info) Description 04/20/2025 Orders Only [facility] Part of [address] [place] [phone] Provider, MD Diane Social History Tobacco Use Types Packs/Day Years Used Date Smoking Tobacco: Never Smokeless Tobacco: Never Alcohol Use Standard Drinks/Week Comments Yes 0 (1 standard drink = 0.6 oz pur e alcohol) 2-3 cans of beer per day [facility] Utilities Answer Date Recorded In the past 12 months has [employer], gas, oil, or water company threatened [...] any time in the past 12 m [facility], were you homeless or living in a fci (including now)? No 01/13/2025 Food Insecurity Answer [...] Description 06/02/2025 4:15 PM EDT Procedure visit [facility] Part of [address] [place] [phone] Yimi Ling MD [address] [facility], [address] [place] [address] cysto/ review renal US 09/02/2025 9:00 AM EDT Office Visit Shola Cyr [address] [place] [phone] Virginia Vieira APRN - BOB [address] [place] [address] welcome to medicare documented as [...] Urinalysis (04/12/2025 4:46 PM EDT) Urine Result [facility] Provider URINE ORDERABLES Final Re sult * Culture, Urine (04/12/2025 4:45 PM EDT) Urine URINE SPECIMEN / Unknown Result [facility] Provider MICROBIOLOGY - GENERAL OR DERABLES Final Result * CBC with Auto Differential (04/10/2025 4:48 PM EDT) Blood BLOOD SPECIMEN / Unknown Result [facility] Provider HEMATOLOGY ORDERABLES Fin al Result * Comprehensive Metabolic Panel (04/10/2025 4:40 PM EDT) Blood BLOOD SPECIMEN / Unknown Result [facility] Provider CHEMISTRY ORDERABLES Kim l Result * CT ABDOMEN PELVIS WO CONTRAST (04/10/2025 2:37 PM EDT) Anatomical Region Laterality Modality Abdomen, Pelvis, Hip Computed To mography Result [facility] Provider IMG CT ORDERABLES Final R esult documented in this encounter Visit Diagnoses Not on filedocumented in this encounter Additional Health Concerns Assessment Noted Time A fall risk assessment has been complete d for the patient 03/25/2025 8:57 AM EDT documented as of this encounter Care Teams Director Safety Council Relationship Specialty Start Date End Date Virginia Vieira APRN - DISPATCH ASSOCIATE [address] [place] [address] PCP - General Family Medicine 08/31/24 documented as of this encounter
--- OUTSIDE RECORDS SUMMARY | 2025-05-08 12:23 | XMS_ITS | Clinical Summary ---
Author Organization [facility] Address [address] [place] [address] Care Team Providers Care Electrical Line Splicer Name Role Phone Unavailable Primary Care Provider [...]
--- OUTSIDE RECORDS SUMMARY | 2025-05-08 12:23 | XMS_ITS | Encounter Summary ---
Author Organization [facility] Address [id number] [address] [place] [address] Care Team Providers Care Broadloom Weaver Name Role Phone Unavailable Primary Care Provider Unavailabl e Reason for Visit * Reason Comments Med Refill Encounter Details Date Type Department Care Team (Late st Contact Info) Description 09/18/2019 Refill [facility] [address] [facility] [place] [phone] Anny Arenas DO [address] [facility] [place] [phone] Social History Tobacco Use Types Packs/Day Years [...]
--- OUTSIDE RECORDS SUMMARY | 2025-05-08 12:23 | XMS_ITS | Clinical Summary ---
Author Organization [facility] Address [address] [place] [address] Care Team Providers Care Manufacturing Plant Controller Name Role Phone Virginia Vieira UTILITY SALES AND SERVICE MANAGER - PASSENGER FLAGMAN Primary Care Provider Allergies No known active [...] Team Description 05/06/2025 Abstract Shola Easton MD [facility] [address] [place] [phone] Jan Easton MD 05/05/2025 11:00 AM EDT - 05/07/2025 11:59 PM EDT Hospital Encounter [facility] Ultrasound [address] [place] [address] Yimi Ling MD Hydronephrosis, unspecified hydronephrosis type Discharge Disposition: Home or Self Care 05/04/2025 8:00 AM EDT Office Visit [address] [place], [phone] Yimi Ling MD Hydronephrosis, unspecified hydronephrosis type (Primary Dx); Gross hematuria; BPH with obstruction/lower urinary tract symptoms; Bladder wall thickening 05/04/2025 Telephone [facility] Part [address] [place] [address] Milady Marquez, UTILITY SALES AND SERVICE MANAGER - PASSENGER FLAGMAN Results (/) 04/29/2025 Results Follow-Up Shola Easton [facility] [address] [place] [address] Virginia Vieira APRN - BOB 04/22/2025 Abstract Shola Easton [facility] [address] [place] [address] Jan Easton MD 04/20/2025 1:00 PM EDT Office Visit Shola Easton [facility] [address] [place] [address] Virginia Vieira UTILITY SALES AND SERVICE MANAGER - BOB URBANO (acute kidney injury) (Primary Dx); Acute cystitis with hematuria; Hydronephrosis, unspecified hydronephrosis type; Low hemoglobin; Low platelet count 04/20/[address] [place] [address] Yimi Ling MD 04/20/2025 Orders Only [address] [place] [address] Diane Au MD 04/14/2025 Abstract [facility] [address] [place] [address] Jan Easton MD 04/14/2025 Shailesh Cyr [address] [facility] [place] [address] Jan Easton MD 04/14/2025 Abstract [facility] [address] [facility] [place] [address] Jan Easton MD 04/14/2025 Abstract [facility] [address] [place] [phone] Jan Easton MD 04/13/2025 Abstract [facility]ola [facility]on [facility] [address] [place] [address] Jan Easton MD 04/08/2025 Telephone Shola Easton MD [facility] [address] [place] [phone] Keke Alvarado Results (UA and culture) 04/07/2025 9:54 AM EDT - 04/07/2025 11:59 PM EDT [facility] [address] [place], [place] [phone] Dysuria; Urinary frequency Discharge Disposition: Home or Self Care 04/06/2025 Orders Only Shola Easton [facility] [address] [place] [phone] Virginia Vieira UTILITY SALES AND SERVICE MANAGER - BOB Dysuria (Primary Dx); Urinary frequency 04/04/2025 Refill Shola Easton MD [address] [phone] Petra Sanchez UTILITY SALES AND SERVICE MANAGER - PASSENGER FLAGMAN Medication Refill 03/29/2025 Abstract Shola Easton [facility] [address] [place] [phone] Jan Easton MD 03/28/2025 Results Follow-Up Shola Easton [facility] [address] [place] [phone] Virginia Vieira APRN - PASSENGER FLAGMAN 03/25/2025 9:00 AM EDT Lab Shola Easton [facility] [address] [place], [place] [phone] [phone] Virginia Vieira APRN - CNP 03/01/2025 9:00 AM EDT Office Visit Shola Cyr [address] [place] [address] Virginia Vieira APRN - CNP Hypertension, unspecified type (Primary Dx); Encounter for screening prostate specific antigen (PSA) measurement; Colon cancer screening 02/23/2025 Results Follow-Up Shola Cyr [address] [place] [address] Virginia Vieira APRN - CNP 02/22/2025 8:07 AM EDT - 02/22/2025 11:59 PM EDT Hospital Encounter [facility] [address] [place] [address] Diabetes mellitus screening; Hypertension, unspecified type Discharge [...] alcohol) 2-3 cans of beer per day [facility] Utilities Answer Date Recorded In the past 12 months has [employer], [facility], oil, or water [employer] threatened to shut off services in your [...] any time in the past 12 m [facility], were you homeless or living in [...] Description 06/02/2025 4:15 PM EDT Procedure visit [facility] Part of [address] [place] [address] Yimi Ling MD 27 [facility], [address] [place] [address] cysto/ review renal US 09/02/2025 9:00 AM EDT Office Visit Shola Easton MD [facility] [address] [place] [phone] Virginia Vieira APRN - PASSENGER FLAGMAN [address] [place] [address] welcome to medicare Health Maintenance [...] HISTORY: This procedure can be scheduled via [employer]. FINDINGS: The right kidney measures 10.1 cm [...] HISTORY: This procedure can be scheduled via [employer]. FINDINGS: The right kidney measures 10.1 cm [...] Color, UA Yellow Yellow 04/07/2025 10:19 AM [facility] Turbidity UA Cloudy(A) Clear 04/07/2025 10:19 AM [facility] Glucose, Ur NEGATIVE NEGATIVE mg/dL 04/07/2025 10:19 AM [facility] Bilirubin, Urine NEGATIVE NEGATIVE 04/07/2025 10:19 AM [facility] Ketones, Urine NEGATIVE NEGATIVE mg/dL 04/07/2025 10:19 AM [facility] Specific [place], UA 1.020 1.010 - 1.020 04/07/2025 10:19 AM [facility] Urine Hgb 2+(A) NEGATIVE 04/07/2025 10:19 AM [facility] pH, Urine 8.0 5.0 - 9.0 04/07/2025 10:19 AM [facility] Protein, UA 2+(A) NEGATIVE mg/dL 04/07/2025 10:19 AM [facility] Urobilinogen, Urine Normal 0.0 - 1.0 EU/dL 04/07/2025 10:19 AM EDT [facility] Nitrite, Urine POSITIVE(A) NEGATIVE 10:19 AM EDT [facility] Leukocyte Esterase, Urine MODERATE(A) NEGATIVE 04/07/2025 10:19 AM EDT [facility] WBC, UA 50 TO 100 0 - 5 /HPF 04/07/2025 10:19 AM EDT [facility] RBC, UA 5 TO 10 0 - 2 /HPF 04/07/2025 10:19 AM EDT [facility] Epithelial Cells, UA 0 TO 2 0 - 5 /HPF 04/07/2025 10:19 AM EDT [facility] Renal Epithelial, UA 2 TO 5 0 /HPF 04/07/2025 10:19 AM EDT [facility] Bacteria, UA 2+(A) None 04/07/2025 10:19 AM EDT [facility] Urine URINE SPECIMEN / Unknown 04/07/2025 10:19 AM EDT 04/07/2025 10:20 AM EDT Virginia Vieira UTILITY SALES AND SERVICE MANAGER - PASSENGER FLAGMAN URINE ORDERABLES Final Result [facility] [address] [phone] * Fecal DNA Colorectal cancer screening (Cologuard) (03/22/2025 3:59 AM EDT) FIT-DNA (Cologuard) Negative Negative 03/28/2025 7:17 AM EDT [facility] (CLIA #:[id number]) Comment: The Cologuard Plus (TM) test was performed on this specimen. NEGATIVE TEST RESULT. A negative (normal) Cologuard Plus result means the patient has a [id number]-hajypgl chance of having colorectal cancer (CRC) or [...] a 91% specificity (Cologuard Plus Clinician Brochure. [employer]. [place], [place].). Visit [email or web address] for more test information, references, warnings, and precautions. Feces (substance) STOOL SPECIMEN / Unknown 03/22/2025 3:59 AM EDT 2025 11:11 AM EDT us Virginia Vieira UTILITY SALES AND SERVICE MANAGER - PASSENGER FLAGMAN MICROBIOLOGY - GENERAL ORDERABLES Final Result [facility] (CLIA #:[id number]) [address] [place] [address], [facility] [phone] * CBC (02/22/2025 8:14 AM EDT) WBC 5.2 3.5 - 11.3 k/uL 02/22/2025 8:14 AM [facility] RBC 4.99 4.21 - 5.77 m/uL 02/22/2025 8:14 AM [facility] Hemoglobin 14.6 13.0 - 17.0 g/dL 02/22/2025 8:14 AM [facility] Hematocrit 42.9 40.7 - 50.3 % 02/22/2025 8:14 AM [facility] MCV 86.0 82.6 - 102.9 fL 02/22/2025 8:14 AM [facility] MCH 29.3 25.2 - 33.5 pg 02/22/2025 8:14 AM [facility] MCHC 34.0 28.4 - 34.8 g/dL 02/22/2025 8:14 AM [facility] RDW 13.0 11.8 - 14.4 % 02/22/2025 8:14 AM [facility] Platelets 146 138 - 453 k/uL 02/22/2025 8:14 AM [facility] MPV 9.6 8.1 - 13.5 fL 02/22/2025 8:14 AM [facility] NRBC Automated 0.0 0.0 per 100 WBC 02/22/2025 8:14 AM [facility] Blood BLOOD SPECIMEN / Unknown 02/22/2025 8:14 AM EDT 02/22/2025 8:15 AM EDT us Virginia Vieira UTILITY SALES AND SERVICE MANAGER - PASSENGER FLAGMAN HEMATOLOGY ORDERABLES Final Result [facility] [address] [place] [id number] [phone] * Hemoglobin A1C (02/22/2025 8:14 AM EDT) Hemoglobin A1C 4.8 4.0 - 6.0 % 02/22/2025 8:14 AM EDT [facility] Estimated Avg Glucose 91 mg/dL 02/22/2025 8:14 AM EDT [facility] Comment: The ADA and AACC recommend providing the estimated average glucose result to permit better patient understanding of their HBA1c result. Blood BLOOD SPECIMEN / Unknown 02/22/2025 8:14 AM EDT 02/22/2025 8:15 AM EDT Virginia Vieira UTILITY SALES AND SERVICE MANAGER - PASSENGER FLAGMAN CHEMISTRY ORDERABLES F inal Result [facility] [address] [place] [address], [facility] [phone] [facility] [address] [place] [address], [facility] [phone] * Lipid Panel (02/22/2025 8:14 AM EDT) Cholesterol, Total 164 0 - 199 mg/dL 02/22/2025 8:14 AM EDT [facility] Comment: Cholesterol Guidelines: <200 Desirable 200-240 Borderline >240 Undesirable HDL 59 >40 mg/dL 02/22/2025 8:14 AM EDT [facility] Comment: HDL Guidelines: <40 Undesirable 40-59 Borderline >59 Desirable LDL Cholesterol 92 0 - 100 mg/dL 02/22/2025 8:14 AM EDT [facility] Comment: LDL Guidelines: <100 Desirable 100-129 Near to/above Desirable 130-159 Borderline >159 Undesirable Direct (measured) LDL and calculated LDL are not interchangeable tests. Chol/HDL Ratio 2.8 02/22/2025 8:14 AM EDT [facility] Triglycerides 63 <150 mg/dL 02/22/2025 8:14 AM EDT [facility] Comment: Triglyceride Guidelines: <150 Desirable 150-199 Borderline 200-499 High >499 Very high Based on AHA Guidelines for fasting triglyceride, August 2012. VLDL 13 1 - 30 mg/dL 02/22/2025 8:14 AM EDT [facility] Blood BLOOD SPECIMEN / Unknown 02/22/2025 8:14 AM EDT 02/22/2025 8:15 AM EDT Virginia Vieira UTILITY SALES AND SERVICE MANAGER - PASSENGER FLAGMAN CHEMISTRY ORDERABLES F inal Result [facility] [address] [place] [address], [facility] [phone] [facility] [address] [place] [address], [facility] [phone] from Last 3 Months Insurance MEDICARE [employer] [id number] [employer] SENIOR MEDICARE SUPP Care Teams Manufacturing Plant Controller Relationship Specialty Start Date End Date Virginia Vieira APRN - CNP [address] [place] [address] PCP - General Family Medicine 08/31/24
--- OUTSIDE RECORDS SUMMARY | 2025-05-08 12:23 | XMS_ITS | Encounter Summary ---
Author Organization [facility] Address [address] [place] [address] Care Team Providers Care Analysis Analyst Name Role Phone Virginia Vieira APRN - BOB Primary Care Provider Encounter Details Date Type Department Care Team (Late st Contact Info) Description 03/28/2025 Results Follow-Up Shola Easton MD [facility] [address] [place] [phone] Virginia Vieira APRN - CNP [address] [place] [address] Social History Tobacco Use Types Packs/Day Years Used Date Smoking Tobacco: Never Smokeless Tobacco: Never Alcohol Use Standard Drinks/Week Comments Yes 0 (1 standard drink = 0.6 oz pur e alcohol) 2-3 cans of beer per day [facility] Utilities Answer Date Recorded In the past 12 months has [employer], gas, oil, or water [employer] threatened to shut off services in your [...] any time in the past 12 m [facility], were you homeless or living in a nursing home (including now)? No 01/13/2025 Food Insecurity [...] Description 06/02/2025 4:15 PM EDT Procedure visit [facility] Part of [address] [place] [address] Yimi Ling MD [address] [place] [address], [address] [place] [address] cysto/ review renal US 09/02/2025 9:00 AM EDT Office Visit Shola Easton MD [facility] [address] [place] [phone] Virginia Vieira, THUAN - AIR SURVEILLANCE OPERATOR [address] [place] [address] welcome to medicare documented as of this encounter Visit Diagnoses Not on filedocumented in this encounter Additional Health Concerns Assessment Noted Time A fall risk assessment has been complete d for the patient 03/25/2025 8:57 AM EDT documented as of this encounter Care Teams Analysis Analyst Relationship Specialty Start Date End Date Virginia Vieira APRN - BOB [address] [place] [address] PCP - General Family Medicine 08/31/24 documented as of this encounter
--- OUTSIDE RECORDS SUMMARY | 2025-05-08 12:23 | XMS_ITS | Encounter Summary ---
Author Organization [facility] Address [address] [place] [address] Care Team Providers Care Nitrocellulose Maker Name Role Phone Virginia Vieira FINAL OPERATIONS TECHNICIAN - WEIGHER ALLOY Primary Care Provider Encounter Details Date Type Department Care Team (Late st Contact Info) Description 05/06/2025 Abstract CShani Easton MD [facility] [address] [place] [address] Jan Easton MD [address] [place] [address] Social History Tobacco Use Types Packs/Day Years Used Date Smoking Tobacco: Never Smokeless Tobacco: Never Alcohol Use Standard Drinks/Week Comments Yes 0 (1 standard drink = 0.6 oz pur e alcohol) 2-3 cans of beer per day [facility] Utilities Answer Date Recorded In the past 12 months has [employer], gas, oil, or water [employer] threatened to shut off services in your [...] any time in the past 12 m [facility], were you homeless or living in a prison (including now)? No 01/13/2025 Food Insecurity Answer [...] Description 06/02/2025 4:15 PM EDT Procedure visit [facility] Part of [address] [place] [address] Yimi Ling MD [address] [facility], [address] [place] [address] cysto/ review renal US 09/02/2025 9:00 AM EDT Office Visit [facility]ola [facility]on [facility] [address] [place] [address] Virginia Vieira, THUAN - WEIGHER ALLOY [address] [place] [address] welcome to medicare documented as of this encounter Visit Diagnoses Not on filedocumented in this encounter Additional Health Concerns Assessment Noted Time A fall risk assessment has been complete d for the patient 03/25/2025 8:57 AM EDT documented as of this encounter Care Teams Nitrocellulose Maker Relationship Specialty Start Date End Date Virginia Vieira APRN - BOB [address] [place] [address] PCP - General Family Medicine 08/31/24 documented as of this encounter
--- OUTSIDE RECORDS SUMMARY | 2025-05-08 12:23 | XMS_ITS | Encounter Summary ---
Author Organization [facility] [employer] [facility] Address [id number] [address] [place] [address] Care Team Providers Care Engine Room Operator Name Role Phone Unavailable Primary Care Provider Unavailabl e Reason for Visit * Reason Comments Med Refill Encounter Details Date Type Department Care Team (Late st Contact Info) Description 10/05/2019 Refill [facility] [address] [place] [facility] [place] [phone] Anny Arenas DO [address] [facility] [place] [address] Social History Tobacco Use Types [...]
--- OUTSIDE RECORDS SUMMARY | 2025-05-08 12:23 | XMS_ITS | Encounter Summary ---
Author Organization [facility] Address [address] [place] [address] Care Team Providers Care Garnett Mechanic Name Role Phone Virginia Vieira THUAN - BOB Primary Care Provider Reason for Visit * Reason Onset Date Comments Results 05/04/2025 Encounter Details Date Type Department Care Team (Late st Contact Info) Description 05/04/2025 Telephone [facility] Part of [address] [place] [phone] Milady Marquez APRN - DIRECTOR AUTOMOTIVE [address] [place] [address] [address] [place] [phone] Results (/) Social History Tobacco Use Types Packs/Day Years Used Date Smoking Tobacco: Never Smokeless Tobacco: Never Alcohol Use Standard Drinks/Week Comments Yes 0 (1 standard drink = 0.6 oz pur e alcohol) 2-3 cans of beer per day [facility] Utilities Answer Date Recorded In the past 12 months has [employer], gas, oil, or water company threatened [...] time in the past 12 m [facility], were you homeless or living in [...] Description 06/02/2025 4:15 PM EDT Procedure visit [facility] Part of [address] [place] [address] Yimi Ling MD [address] [place] [address], [address] [place] [address] cysto/ review renal US 09/02/2025 9:00 AM EDT Office Visit Shola Easton MD [address] [phone] Virginia Vieira APRN - CNP [address] [place] [address] welcome to medicare documented as of this encounter Visit Diagnoses Not on filedocumented in this encounter Additional Health Concerns Assessment Noted Time A fall risk assessment has been complete d for the patient 03/25/2025 8:57 AM EDT documented as of this encounter Care Teams Garnett Mechanic Relationship Specialty Start Date End Date Virginia Vieira APRN - CNP [address] [place] [address] PCP - General Family Medicine 08/31/24 documented as of this encounter
--- OUTSIDE RECORDS SUMMARY | 2025-05-08 12:23 | XMS_ITS | Clinical Summary ---
Author Organization [email or web address] [facility] tem Address [id number] [address] [place] [address] Care Team Providers Care Faculty Member Name Role Phone Unavailable Primary Care Provider [...] 07/25/2025 Medical Devices Not on file Insurance [id number]
--- OUTSIDE RECORDS SUMMARY | 2025-05-08 12:23 | XMS_ITS | Encounter Summary ---
Author Organization [facility] Address [address] [place] [address] Care Team Providers Care Loom Changeover Operator Name Role Phone Virginia Vieira CONTROL SYSTEMS ENG - CASH SURRENDER CALCULATOR Primary Care Provider Encounter Details Date Type Department Care Team (Late st Contact Info) Description 04/22/2025 Abstract CShani Easton MD [facility] [address] [place] [address] Jan Easton MD [address] [place] [address] Social History Tobacco Use Types Packs/Day Years Used Date Smoking Tobacco: Never Smokeless Tobacco: Never Alcohol Use Standard Drinks/Week Comments Yes 0 (1 standard drink = 0.6 oz pur e alcohol) 2-3 cans of beer per day [facility] Utilities Answer Date Recorded In the past 12 months has [employer], gas, oil, or water [employer] threatened to shut off services in your [...] any time in the past 12 m [facility], were you homeless or living in a mcc (including now)? No 01/13/2025 Food Insecurity Answer [...] Description 06/02/2025 4:15 PM EDT Procedure visit [facility] Part of [address] [place] [address] Yimi Ling MD [address] [facility], [address] [place] [address] cysto/ review renal US 09/02/2025 9:00 AM EDT Office Visit [facility] [address] [place] [address] Virginia Vieira, THUAN - CASH SURRENDER CALCULATOR [address] [place] [address] welcome to medicare documented as of this encounter Visit Diagnoses Not on filedocumented in this encounter Additional Health Concerns Assessment Noted Time A fall risk assessment has been complete d for the patient 03/25/2025 8:57 AM EDT documented as of this encounter Care Teams Loom Changeover Operator Relationship Specialty Start Date End Date Virginia Vieira APRN - BOB [address] [place] [address] PCP - General Family Medicine 08/31/24 documented as of this encounter
--- OUTSIDE RECORDS SUMMARY | 2025-05-08 12:23 | XMS_ITS | Encounter Summary ---
Author Organization [facility] Address [address] [place] [address] Care Team Providers Care Telecommunications Line Mechanic Name Role Phone Unavailable Primary Care Provider Unavailabl e Reason for Visit * Reason Comments Med Refill Encounter Details Date Type Department Care Team (Late st Contact Info) Description [facility]/21[facility] [address] [place] [phone] Henrique Thao MD [address] [place] [address] Essential (primary) hypertension ; Essential hypertension Social [...]
--- NOTE | 2025-05-08 12:34 | PM.DS1 ---
DS: Providers Provider Date of admission: 05/07/25 15:43 Primary care physician: CHETNA HANNAH Attending physician on discharge: NOEMI MODI Discharging clinician: NOEMI MODI Anticipated date of discharge: 05/08/25 DS: Diagnosis Discharge Diagnosis (1) New onset a-fib: (2) Chest pain: Qualifiers: Chest pain type: other chest pain Qualified Code(s): R07.89 - Other chest pain (3) Jaw pain: (4) Atrial fibrillation with RVR: (5) Troponin level elevated: (6) BPH (benign prostatic hyperplasia): Qualifiers: Lower urinary tract symptom presence: symptoms present Lower urinary tract symptom detail: incomplete bladder emptying Qualified Code(s): N40.1 - Benign prostatic hyperplasia with lower urinary tract symptoms; R39.14 - Feeling of incomplete bladder emptying Plan Episode of paroxysmal atrial fibrillation, with rapid ventricular response, with heart rate up to 150 bpm. Atrial fibrillation possibly exacerbated by patient straining to void urine due to prostate hypertrophy. Atrial fibrillation with rapid ventricular response terminated in the emergency room with 20 mg bolus of IV Cardizem. Patient monitored in the hospital overnight due to troponin elevation. There was no return of atrial fibrillation. Troponin levels went from 8.0 to 25.6 to 239 to 184 and finally down to 61.9. No acute ischemia on telemetry or 12 lead EKG. Patient is suitable for outpatient office follow-up with cardiology to consider stress testing and echocardiogram. Patient has an appointment around June 02 with urology for what sounds like cystoscopy. DS: Summary Hospital Course Hospital Course: This is a 65-year-old man who came to the hospital emergency room with substernal chest pain and a little bit of jaw pain. In the emergency room he was found to have atrial fibrillation with rapid ventricular response. His heart rate was 150 bpm. He has no history of atrial fibrillation before. He had been at home straining to pass urine and pushing very hard on the toilet. He felt dizzy and lightheaded like he might pass out so he crouched down and then he stood up quickly and that is when he began feeling the chest pain. He does have a history of prostate hypertrophy. About 1 month before this hospital stay he presented emergency room for an acute kidney injury and a Colvin catheter was placed and he was monitored in the hospital on IV fluids and with the Colvin catheter in place his creatinine did normalize. Since that hospital stay here in [place] about a month ago he has been established with a urologist and had the Colvin catheter removed but he still obviously has a lot of lower urinary tract symptomatology when he goes to void urine. In the emergency room his atrial fibrillation with rapid ventricular response was treated with a 20 mg bolus of IV Cardizem. They were about ready to hang the Cardizem drip when he suddenly converted to normal sinus rhythm. But his troponin increased from 8.0 up to 25.6 and less than 2 hours so a decision was made to monitor him overnight. After the atrial fibrillation was fully treated emergency room he had no more anginal chest pain. He was chest pain-free. Overnight his troponin did peak to 239, but then before midnight and improved to 184. He was monitored on telemetry overnight and had no more atrial fibrillation with rapid ventricular response. On Friday morning, the next morning hospitalist troponin was normal again at 61.9. His twelve-lead EKG showed no evidence of ischemic changes. He was symptom-free. The [facility] cardiology service did recommend outpatient cardiology office follow-up. I suspect that the patient would benefit from stress testing and echocardiography. On discharge I am recommending that the patient stop his lisinopril 5 mg daily and take Cardizem CD 120 mg daily and 81 mg of aspirin daily. His CHADS2 DS VASc score is 1. Status at Discharge Functional status at discharge: independent ambulation Overall status at discharge: patient is back to baseline Time Spent with Patient Time attestation: Total time spent providing and/or coordinating discharge services: 22 minutes. Time spent: less than 30 minutes Exam Narrative Exam Narrative: General: Awake. Alert. Oriented x 3. Cardiac: Regular rate and rhythm to auscultation. No murmurs or rubs or gallops to auscultation. Pulmonary: Clear to auscultation throughout. No wheezing. No rhonchi. No crackles. Lower extremities: A tiny bit of edema around his ankles looks chronic. No swelling or knots in the calves bilaterally. Telemetry monitoring shows a nice normal sinus rhythm without any PVCs or PACs. No return of paroxysmal atrial fibrillation with rapid ventricular response. Constitutional Vital Signs, click to edit/add: Last Vital Signs Temp 97.8 F 05/08/25 04:00 Pulse 83 05/08/25 12:06 Resp 16 05/08/25 08:00 BP 144/77 H 05/08/25 09:31 Pulse Ox 99 05/08/25 08:00 O2 Del Method Room Air 05/08/25 08:00 DS: Data Data Completed and Pending Labs on day of discharge: Labs from last 24 hours 05/08/25 05/07/25 05/07/25 05:57 21:00 16:12 Sodium 139 Potassium 3.9 Chloride 105 Carbon Dioxide 22.9 Anion Gap 15.0 BUN 30.0 H Creatinine 1.38 H Est GFR ( Amer) >60 Est GFR (Non-Af Amer) 52 L BUN/Creatinine Ratio 21.7 Glucose 107 H Calcium 8.6 Troponin I High Sens 61.9 184.1 H* 239.3 H* Urine Color Urine Clarity Urine pH Ur Specific [place] Urine Protein Urine Glucose (UA) Urine Ketones Urine Occult Blood Urine Nitrite Urine Bilirubin Urine Urobilinogen Ur Leukocyte Esterase Urine RBC Urine WBC Ur Squamous Epith Cells Urine Crystals Urine Bacteria Urine Casts Urine Mucus Ur Culture Indicated? 05/07/25 12:40 Sodium Potassium Chloride Carbon Dioxide Anion Gap BUN Creatinine Est GFR ( Amer) Est GFR (Non-Af Amer) BUN/Creatinine Ratio Glucose Calcium Troponin I High Sens 25.6 Urine Color Lt. yellow Urine Clarity Clear Urine pH 6.[address] [place] 1.010 Urine Protein Negative Urine Glucose (UA) Negative Urine Ketones Negative Urine Occult Blood Trace-i Urine Nitrite Negative Urine Bilirubin Negative Urine Urobilinogen 0.2 Ur Leukocyte Esterase Small A Urine RBC 0-2 Urine WBC 10-20 A Ur Squamous Epith Cells Rare Urine Crystals None seen Urine Bacteria Small A Urine Casts None seen Urine Mucus None seen [place] Culture Indicated? [place] [place] at [place] 05/07/25 12:40 Urine Culture - Preliminary Urine,Clean Catch Pending - Specimen sent to [facility] Discharge Plan Discharge Disposition: Home, Self-Care Plan of Treatment: Follow up with Cardiology in their office. Discharge Medications: New aspirin 81 mg Tablet,Delayed Release (Dr/Ec) 81 mg PO QD 30 Days Qty: 30 0RF Rx Instructions: Further refills per PCP. diltiazem HCl [Cardizem CD] 120 mg capsule,extended release 24hr 120 mg PO DAILY 30 Days Qty: 30 0RF Rx Instructions: Further refills per cardiology or PCP. Continued tamsulosin 0.4 mg Capsule 0.4 mg PO QD Qty: 30 11RF Discontinued lisinopril 5 mg tablet 5 mg PO DAILY Print Language: Khmer Forms: Portal Instructions
--- NOTE | 2025-05-09 14:41 | CM.DCFOLLOWU ---
05/09- 1st attempt. No answer
--- NOTE | 2025-05-11 15:08 | CM.DCFOLLOWU ---
Person spoke with: Gt How are you feeling? Much better How is your pain? No pain Did you understand your discharge instructions? Yes Do you have any questions about your discharge instructions? No Were you given any prescriptions at discharge? Yes Were you able to get your prescriptions filled? No I have not filled them- encouraged pt to supervisor opening and picking medications today and importance Do you understand how to take your medications as ordered? Yes Do you have any questions about your follow up appointment and do you plan to keep your follow up appointment? I did see automotive welder today, but did not tell them I have not started cardizem. Pt will supervisor opening and picking today and start medications Is there anything else that you would like to discuss? No Questions/Comments/Concerns/Other:
--- NOTE | 2025-05-12 13:12 | CM.NOTE ---
Called Dr. Easton office with final urine culture results and faxed to [phone].
== END 2025-05-08 14:08 | disposition home or self-care (01) ==
LOC: ER 14:14 → MS 05-08 12:21
PROVIDERS: Admitting Provider Hospitalist; Emergency Provider Emergency Medicine; PCP Internal Medicine; Visit Provider Hospitalist
DX: I48.0 Paroxysmal atrial fibrillation (principal); R68.84 Jaw pain; I10 Essential (primary) hypertension; R42 Dizziness and giddiness; Z79.899 Other long term (current) drug therapy; N40.1 Benign prostatic hyperplasia with lower urinary tract symptoms; R07.89 Other chest pain; R39.14 Feeling of incomplete bladder emptying; R79.89 Other specified abnormal findings of blood chemistry
CPT/HCPCS: 36415; 71045; 80048; 80053; 81001; 83735; 84484; 85025; 85610; 87086; 87088; 87186; 93005; 96374; 99285; G0378